=== PATIENT | male | born 1970 | race Caucasian/White ===

== ENCOUNTER → 2018-02-21 08:43 | Outpatient (CLI) | payer OTHER, SELFPAY ==
--- NOTE | 2018-02-21 08:46 | DI.RAD.S_ITS ---
PROCEDURE: XR CHEST 2V INDICATIONS: cough TECHNIQUE: 2 views of the chest were acquired. COMPARISON: [facility], , CHEST 1 VIEW, 04/15/2012, 6:05. FINDINGS: Surgical changes and devices: None. Lungs and pleura: No pleural effusions or pneumothorax. Lungs are clear. Mediastinum: Mediastinal contours are normal. Heart size is normal. Bones and chest wall: No suspicious bony abnormalities. Soft tissues appear unremarkable. IMPRESSION: No acute pulmonary process. Dictated by: Patricia De Leon M.D. on 02/21/2018 at 10:56 Approved by: Patricia De Leon M.D. on 02/21/2018 at 10:57
== END ==
PROVIDERS: PCP Family Medicine; Visit Provider Family Medicine
DX: R05 Cough (principal)
CPT/HCPCS: 71046

== ENCOUNTER → 2019-01-08 06:33 | Outpatient (CLI) | payer OTHER, SELFPAY ==
[2019-01-08 08:27] LABS: Add Manual Diff / Slide Review NO; Basophils Absolute Auto 0 /uL (0-100); Basophils Percent Auto 0.6 % (0-2); Eosinophils Absolute Auto 200 /uL (0-450); Hematocrit 42.2 % (41-53); Hemoglobin 13.9 g/dL (13.5-17.5); Lymphocytes Absolute Auto 2200 /uL (1100-4500); Lymphocytes Percent Auto 28.8 % (25-40); Mean Corpuscular HGB Conc 32.8 % (30-36); Mean Corpuscular Hemoglobin 28.5 PG (26-34); Mean Corpuscular Volume 86.7 fL (80-100); Monocytes Absolute Auto 700 /uL (0-900); Monocytes Percent Auto 8.7 % (3-14); Neutrophils Absolute Auto 4500 /uL (1500-7000); Neutrophils Percent Auto 59.9 % (50-75); Platelet Count 251 X10^3/uL (150-400); Red Blood Cell Count 4.87 X10^6/uL (4.5-5.9); Red Cell Distribution Width 13.2 % (11.6-14.8); White Blood Cell Count 7.5 X10^3/uL (4.5-11.0)
[2019-01-08 08:33] LABS: Hemoglobin A1C% w Est Avg Glu 6.8 % (4.0-6.0)
[2019-01-08 08:49] LABS: Alanine Aminotransferase 55 IU/L (21-72); Albumin 4.8 g/dL (3.5-5.0); Albumin Globulin Ratio 1.7 (1.0-2.8); Alkaline Phosphatase 72 U/L (38-126); Aspartate Aminotransferase 32 IU/L (17-59); Bilirubin Total 0.6 mg/dL (0.2-1.3); Blood Urea Nitrogen 14 mg/dL (9-20); Calcium 9.3 mg/dL (8.4-10.2); Carbon Dioxide 27 mmol/L (22-32); Chloride 103 mmol/L (98-107); Cholesterol 190 mg/dL (140-199); Estimated Glomerular Filt Rate > 60.0 mL/min (>60); Globulin 2.8 g/dL (1.7-4.1); Glucose 147 mg/dL (70-100); HDL Cholesterol 39 mg/dL (40-60); HEMOLYSIS < 15 (0-50); LDL Cholesterol Calculated 82 mg/dL (<100); Potassium 4.3 mmol/L (3.4-5.1); Sodium 140 mmol/L (137-145); Total Protein 7.6 g/dL (6.3-8.2); Triglycerides 345 mg/dL (35-150)
[2019-01-08 09:16] LABS: Thyroid Stimulating Hormone 1.53 uIU/mL (0.47-4.68)
== END ==
PROVIDERS: PCP Family Medicine; Visit Provider Family Medicine
DX: E11.9 Type 2 diabetes mellitus without complications (principal); E66.01 Morbid (severe) obesity due to excess calories; E78.5 Hyperlipidemia, unspecified
CPT/HCPCS: 36415; 80053; 80061; 83036; 84443; 85025

== ENCOUNTER 2019-02-04 11:58 | Day surgery (SDC) | payer OTHER, SELFPAY ==
--- NOTE | 2019-02-04 12:10 | PM.HP.1 ---
History of Present Illness Date Patient Seen: 02/04/19 Time Patient Seen: 12:10 Chief complaint: [id number] Narrative: 48yo M for first low risk screening colonoscopy. No family history, no alarm symptoms. Patient History Medical History Hyperlipidemia (Chronic 2008) Controlled type 2 diabetes mellitus (Chronic 01/01/13) Morbid obesity (Chronic 03/01/16) Chronic cough (Chronic) Elevation of muscle enzyme (Chronic 2007) Skin tag (Chronic) Elbow fracture, right (Resolved 1988) Positive PPD (Resolved 1990) Surgical History Anesthesia (Resolved) Status post arthroscopy (Resolved) Family History (Updated 03/05/18 @ 10:52 by Kaleigh Caban) Father Age: 76 Diabetes mellitus Heart disease Hyperlipidemia Mother Heart disease Hypertension High cholesterol Heart attack Grandfather Heart disease Hypertension Grandmother No problems noted. Social History marital status: Smoking Status: Never smoker alcohol intake: never substance use type: does not use Family & Social History Family History Father Age: 76 Diabetes mellitus Heart disease Hyperlipidemia Mother Heart disease Hypertension High cholesterol Heart attack Grandfather Heart disease Hypertension Grandmother No problems noted. Tobacco & Substance use: Smoking Status Never smoker alcohol intake never Meds Home Medications Medication Instructions Recorded Confirmed Type Test Strips - Freestyle str BID #100 08/16/17 01/14/19 Rx aspirin 81 mg tablet,delayed 81 mg PO DAILY #90 tab 12/25/17 02/04/19 Rx release metformin 1,000 mg tablet 1,000 mg PO BIDCC #180 tab 04/18/18 02/04/19 Rx blood sugar diagnostic strips #100 each 08/19/18 02/04/19 Rx simvastatin 40 mg tablet 40 mg PO QDAY #90 tab 09/09/18 02/04/19 Rx Allergies Allergy/AdvReac Type Severity Reaction Status Date / Time No Known Drug Allergies Allergy Verified 02/04/19 12:20 Review of Systems Constitutional Constitutional: Reports as per HPI Exam Narrative Exam Narrative: AAO, NAD, overweight male EOMI, MMM, no scleral icterus unlabored RA soft, nt/nd MAEW visible skin dry and intact Assessment & Plan (1) Screening for colorectal cancer: Current visit: Yes Status: Acute Assessment & Plan narrative: - low risk screening colonoscopy --> all R/B/A discussed and pt wishes to proceed
[2019-02-04 12:15] VITALS: BMI 33.0
[2019-02-04] MEDS: SODIUM CHLORIDE 0.9% 1,000 ML 200 ML IV (12:15)
[2019-02-04 12:20] VITALS: BP 117/76; PULSE 74; RESP 15; TEMP 36.6; O2SAT 96
--- NOTE | 2019-02-04 12:30 | PM.OP.ENDO ---
Operative Date/Time/Diagnoses Date of procedure: 02/04/19 Time of procedure: 13:14 Pre-op diagnosis: Need for screening colonoscopy Post-op diagnosis: same Procedure & Clinicians Study performed: Low risk screenng colonoscopy Same procedure as scheduled: Yes Indications: 48yo M for first low risk screening colonoscopy. All risks, benefits, and alternatives discussed and pt wishes to proceed. Surgeon: Anne Drake Procedure Notes SCOAP/Timeout: 1232 Procedure in detail: After obtaining informed consent, the patient was brought to the GI suite and placed in the left lateral decubitus position on the examination table. After placement of appropriate monitors, the patient was given incremental doses of Versed and Fentanyl until an appropriate level of sedation was achieved. A time out was held per SCOAP protocol. A digital rectal examination was performed and did not reveal any masses or obstructing lesions but one very small external hemorrhoid is noted. The colonoscope was gently passed into the patient's anus and the entire colon navigated to the level of the cecum with minimal difficulty. Prep was adequate although moderate volume fluid was present requiring regular suctioning. Once in the cecum, the scope was slowly withdrawn being sure to go before and beyond all mucosal folds and prominences as able to get a thorough examination. No masses or polyps are noted. No other abnormal findings. At the level of the rectal vault, the scope was retroflexed and the internal anal canal was examined. The scope was straightened and air aspirated from the colon. The instrument was removed from the patient's body and the procedure was concluded. The patient was allowed to awaken from sedation without difficulty and taken to the post-anesthesia care unit in good condition. Scope withdrawal time: 16 min Sedation minutes: 31 Specimen(s): none sent Complications: none Impression: normal colon Recommendations: Colonscopy in 10 years Follow up: as needed Disposition: PACU
[2019-02-04] MEDS: MIDAZOLAM 5 MG/5 ML VIAL IV (12:53)
[2019-02-04] MEDS: fentaNYL 250 MCG/5 ML INJ IV (12:53)
[2019-02-04 13:09] VITALS: BP 126/78; PULSE 69; RESP 17; TEMP 36.5; O2SAT 96
[2019-02-04 13:15] VITALS: BP 109/73; PULSE 67; RESP 17; O2SAT 97
[2019-02-04 13:33] VITALS: BP 113/68; PULSE 71; RESP 17; TEMP 36.5; O2SAT 98
== END 2019-02-04 13:36 | disposition home or self-care (01) ==
PROVIDERS: PCP Family Medicine; Visit Provider Surgery
PROC: 0DJD8ZZ Inspection of Lower Intestinal Tract, Via Natural or Artificial Opening Endoscopic (ICD-10-PCS; CPT 45378; principal; 2019-02-04 13:00)
DX: Z12.11 Encounter for screening for malignant neoplasm of colon (principal)
CPT/HCPCS: 45378; 99152; 99153; J2250; J3010

== ENCOUNTER → 2019-06-28 18:46 | Outpatient (CLI) | payer OTHER, SELFPAY ==
--- NOTE | 2019-06-28 18:48 | DI.RAD.S_ITS ---
PROCEDURE: XR ELBOW RT MIN 3V INDICATIONS: rt elbow TECHNIQUE: 3 views of the elbow were acquired. COMPARISON: None. FINDINGS: Bones: No acute fractures or dislocations. Faint densities project adjacent to the right radial head. No suspicious bony lesions. Tiny olecranon spur. Soft tissues: No elbow joint effusion. No suspicious soft tissue calcifications. IMPRESSION: Right elbow without acute osseous abnormalities or malalignment. Nonspecific faint densities projecting adjacent to the radial head which may represent soft tissue calcifications of the adjacent ligament. Dictated by: Dennis Villanueva M.D. on 06/28/2019 at 19:19 Approved by: Dennis Villanueva M.D. on 06/28/2019 at 19:27
== END ==
PROVIDERS: PCP Family Medicine; Visit Provider Family Medicine
DX: M25.521 Pain in right elbow (principal)
CPT/HCPCS: 73080

== ENCOUNTER → 2019-08-01 07:12 | Outpatient (CLI) | payer OTHER, SELFPAY ==
[2019-08-01 08:58] LABS: Hemoglobin A1C% w Est Avg Glu 7.1 % (4.0-6.0)
[2019-08-01 09:12] LABS: BUN Creatinine Ratio 27.1 (6-22); Blood Urea Nitrogen 19 mg/dL (9-20); Calcium 9.2 mg/dL (8.4-10.2); Carbon Dioxide 23 mmol/L (22-32); Chloride 105 mmol/L (98-107); Estimated Glomerular Filt Rate > 60.0 mL/min (>60); Glucose 155 mg/dL (70-100); HEMOLYSIS < 15 (0-50); Potassium 3.9 mmol/L (3.4-5.1); Sodium 141 mmol/L (137-145)
[2019-08-01 09:33] LABS: Creatinine Urine Random 158.8 mg/dL
[2019-08-01 09:39] LABS: Microalbumi Creatinin Ratio Ur 9.4 ug/mg CR (<30); Microalbumin Urine Random 1.5 mg/dL (0-1.6)
== END ==
PROVIDERS: PCP Family Medicine; Visit Provider Family Medicine
DX: E11.9 Type 2 diabetes mellitus without complications (principal)
CPT/HCPCS: 36415; 80048; 82043; 82570; 83036

== ENCOUNTER → 2020-05-25 06:53 | Outpatient (CLI) | payer OTHER, SELFPAY ==
[2020-05-25 09:09] LABS: Hemoglobin A1C% w Est Avg Glu 8.1 % (4.0-6.0)
[2020-05-25 09:24] LABS: Glucose 159 mg/dL (70-100)
== END ==
PROVIDERS: PCP Family Medicine; Referring Provider Family Medicine; Visit Provider Family Medicine
DX: E11.9 Type 2 diabetes mellitus without complications (principal)
CPT/HCPCS: 36415; 82947; 83036

== ENCOUNTER 2020-06-14 17:01 | Emergency (ER) | payer OTHER, SELFPAY ==
[2020-06-14 17:15] VITALS: BP 142/84; PULSE 71; RESP 14; TEMP 36.8; O2SAT 98; BMI 32.3
[2020-06-14] MEDS: ACETAMINOPHEN 325 MG TABLET 650 MG PO (18:10)
[2020-06-14] MEDS: KETOROLAC 60 MG/2 ML VIAL 30 MG IM (18:10)
[2020-06-14] MEDS: LIDOCAINE PATCH 1 EACH ADH..PATCH TOP (18:11)
[2020-06-14] MEDS: CYCLOBENZAPRINE 10 MG TABLET PO (18:11)
[2020-06-14 19:06] VITALS: BP 135/85; PULSE 66; RESP 14; O2SAT 98
--- NOTE | 2020-06-14 22:33 | ED.BACK ---
HPI - Back Pain/Injury <SULY Leon - Last Filed: 06/14/20 23:01> General Chief Complaint: Back Pain/Injury Stated Complaint: LOWER BACK PAIN Time Seen by Provider: 06/14/20 17:44 Source: patient Mode of arrival: Ambulatory Limitations: no limitations History of Present Illness HPI Narrative: This is a 50-year-old male, nonsmoker, with past medical condition significant for hyperlipidemia, diabetes presents to ED with significant other with chief complain of right lower back radiating down to posterior knee and some numbness to his toes. Patient has history of peripheral neuropathy but numbness on toes feels little different. Spouse reports patient moved both motor yesterday and pain started yesterday evening. Patient denies fever, chills, nausea or vomiting. Patient denies urinary symptoms such as urgency, frequency, dysuria. Patient denies urinary or stool incontinence. Patient denies history of IV drug use or back surgery. Patient reports pain actually improves when he stands or walking but worse with sitting and he is ambulatory in stable gait. He had taken [id number] Advil at noon. Related Data Previous Rx's Medication Instructions Recorded aspirin 81 mg tablet,delayed 81 mg PO DAILY #90 tab 12/25/17 release simvastatin 40 mg tablet 40 mg PO QDAY #90 tab 02/14/19 metformin 1,000 mg tablet See Rx Instructions .ROUTE 09/08/19 .COMPLEX #180 tablet one touch verio test strips #300 each 06/02/20 Lancets #100 each 06/07/20 cyclobenzaprine 10 mg PO BID PRN #10 tab 06/14/20 lidocaine 1 patch TOP DAILY PRN #30 each 06/14/20 Allergies Allergy/AdvReac Type Severity Reaction Status Date / Time No Known Drug Allergies Allergy Verified 05/31/20 14:39 Review of Systems <SULY Leon - Last Filed: 06/14/20 23:01> Review of Systems Narrative: General: Denies fever, chills, fatigue, malaise, sweats. Respiratory: Denies dyspnea, cough, wheezing, hemoptysis, sputum. Cardiovascular: Denies chest pain, palpitations, orthopnea, edema. Gastrointestinal: Denies nausea, vomiting, abdominal pain, diarrhea, constipation, melena. : Denies dysuria, frequency, incontinence, hematuria, urinary retention. Musculoskeletal: See HPI Skin: Denies rash, skin lesions, or other. Patient History <SULY Leon - Last Filed: 06/14/20 23:01> Medical History Chronic cough (Chronic) Controlled type 2 diabetes mellitus (Chronic 01/01/13) Elbow fracture, right (Resolved 1988) Elevation of muscle enzyme (Chronic 2007) Hyperlipidemia (Chronic 2008) Morbid obesity (Chronic 03/01/16) Positive PPD (Resolved 1990) Right lateral epicondylitis (Acute) Skin tag (Chronic) Surgical History Anesthesia (Resolved) Status post arthroscopy (Resolved) Family History Father Age: 77 Diabetes mellitus Heart disease Hyperlipidemia Mother Heart disease Hypertension High cholesterol Heart attack Grandfather Heart disease Hypertension Grandmother No problems noted. Social History marital status: household members: spouse Smoking Status: Never smoker alcohol intake: never substance use type: does not use Smoking Status: Never smoker alcohol intake frequency: 0-2 drinks per day Substance Use Type: does not use Exam <SULY Leon - Last Filed: 06/14/20 23:01> Narrative Exam Narrative: General appearance: well developed, well nourished, in no acute distress. Head: normocephalic, atraumatic, no scalp lesions, non-tender. ENT: Hearing grossly intact. Airway patent. Neck/Thyroid: neck supple, full range of motion, no visible masses or meningeal signs. No JVD, non-tender without lymphadenopathy. Skin: no suspicious rashes, lesions over visible areas. Warm and dry and appropriate color for ethnicity. Heart: no clubbing, no cyanosis, no edema. Lungs: Breathing even and unlabored. No stridor. No accessory muscles used. Able to speak in full sentences. Chest: normal shape and expansion. Abdomen: non-obese, non-distended. Neurologic: alert and oriented. Cognitive exam, [employer] and PNS grossly intact on informal exam. Psych: good eye contact, normal affect. Initial Vital Signs Initial Vital Signs: Vital Signs Temperature 98.2 F 06/14/20 17:15 Pulse Rate 71 06/14/20 17:15 Respiratory Rate 14 06/14/20 17:15 Blood Pressure 142/84 H 06/14/20 17:15 Pulse Oximetry 98 06/14/20 17:15 Back/Spine/Pelvis Back: normal to inspection, back tenderness, No CVA tenderness, No ecchymosis, No erythema, No mass and No warmth Thoracic/Lumbar Spine: straight leg raise negative bilaterally, No bend over test abnormal, paraspinal tenderness (lumbar region), No thoracic spinal tenderness, No lumbar spinal tenderness, No straight leg raise positive and No tilt present <Yunior Jesus DO - Last Filed: 06/15/20 07:44> Initial Vital Signs Initial Vital Signs: Vital Signs Temperature 98.2 F 06/14/20 17:15 Pulse Rate 71 06/14/20 17:15 Respiratory Rate 14 06/14/20 17:15 Blood Pressure 142/84 H 06/14/20 17:15 Pulse Oximetry 98 06/14/20 17:15 Scores <SULY Leon - Last Filed: 06/14/20 23:01> GCS Chacha coma scale eye opening: Spontaneous Chacha coma scale verbal response: Orientated Chacha coma scale motor response: Obey commands Chacha coma scale total score: 15 Course <SULY Leon - Last Filed: 06/14/20 23:01> Orders Ordered: Discontinued Medications Acetaminophen (Tylenol) 650 mg PO NOW ONE Stop: 06/14/20 18:00 Last Admin: 06/14/20 18:10 Dose: 650 mg Documented by: PREM Cyclobenzaprine HCl (Flexeril) 10 mg PO NOW ONE Stop: 06/14/20 18:00 Last Admin: 06/14/20 18:11 Dose: 10 mg Documented by: PREM Ketorolac Tromethamine (Toradol) 30 mg IM NOW ONE Stop: 06/14/20 18:00 Last Admin: 06/14/20 18:10 Dose: 30 mg Documented by: PREM Lidocaine (Lidoderm) 1 each TOP NOW ONE Stop: 06/14/20 18:00 Last Admin: 06/14/20 18:11 Dose: 1 each Documented by: PREM Vital Signs Vital signs: Vital Signs - 8 hr 06/14/20 17:15 06/14/20 19:06 Temperature 98.2 F Pulse Rate 71 66 Respiratory Rate 14 14 Blood Pressure 142/84 H 135/85 Pulse Oximetry 98 98 <Yunior Jesus DO - Last Filed: 06/15/20 07:44> Orders Ordered: Discontinued Medications Acetaminophen (Tylenol) 650 mg PO NOW ONE Stop: 06/14/20 18:00 Last Admin: 06/14/20 18:10 Dose: 650 mg Documented by: PREM Cyclobenzaprine HCl (Flexeril) 10 mg PO NOW ONE Stop: 06/14/20 18:00 Last Admin: 06/14/20 18:11 Dose: 10 mg Documented by: PREM Ketorolac Tromethamine (Toradol) 30 mg IM NOW ONE Stop: 06/14/20 18:00 Last Admin: 06/14/20 18:10 Dose: 30 mg Documented by: PREM Lidocaine (Lidoderm) 1 each TOP NOW ONE Stop: 06/14/20 18:00 Last Admin: 06/14/20 18:11 Dose: 1 each Documented by: PREM Vital Signs Vital signs: Vital Signs - 8 hr 06/14/20 17:15 06/14/20 19:06 Temperature 98.2 F Pulse Rate 71 66 Respiratory Rate 14 14 Blood Pressure 142/84 H 135/85 Pulse Oximetry 98 98 MDM - Back Pain/Injury <SULY Leon - Last Filed: 06/14/20 23:01> Differential Diagnosis Differential diagnosis: Likely lumbar radiculopathy, sciatica and strain of lumbar region Medical Records Attestation: I reviewed the patient's medical records. Lab Data Attestation: I reviewed the patient's lab results. MDM Narrative Medical decision making narrative: [age] year male who presents to ED with right-sided low back pain radiating down to posterior knee after he moved boat motor. Physical exam is unremarkable. Patient is afebrile and nontoxic appearing. Vital signs within normal limits. Pain worsens with prolonged sitting or supine position. Patient ambulatory in stable gait. Physical exam is not consistent with infection or shingles, pyelonephritis or renal stone. Patient was medicated for lumbar strain with Tylenol, IM Toradol, Lidocaine patch, and Flexeril with some improvement and he was discharged to home with this medication to continue. Advised to follow up with primary care physician and return precautions discussed with patient and spouse which they both verbalized understanding in agreement with the treatment plan. Discharge Plan Departure Patient Disposition: Home Clinical Impression: Low back pain Qualifiers: Chronicity: acute Back pain laterality: right Sciatica presence: with sciatica Sciatica laterality: sciatica of right side Qualified Code(s): M54.41 - Lumbago with sciatica, right side Discharge Date/Time: 06/14/20 19:07 Instructions: DI for Back Pain With Sciatica Activity Restrictions/Additional Instructions: You have been diagnosed with [right-sided low back pain radiating to posterior leg likely sciatica.]. What to do: *Take your medications as directed. You were medicated with Tylenol, IM Toradol, Flexeril (muscle relaxant), Lidocaine patch in ED which helped with discomfort. Flexeril may cause drowsiness so please do not drive, drink alcohol or operate heavy equipments. Lidocaine patch stays on for 12 hours and off for 12 hours. You can take [id number] ibuprofen/Aleve as needed for pain but please take it with food to decrease GI irritations. These to medication have been transmitted to [facility]. *Follow up with your primary care provider in 2-3 days, call for an appointment. Let them know you were seen in the ED and that we asked you to be seen in follow up. *Return to ED if you have any new, worsening, or concerning symptoms, such as [numbness to her groin, incontinence for stool or bladder, fever, rash on her back, chest pain, breathing difficulty, unable to tolerate fluids or any acute concerns]. Prescriptions: New cyclobenzaprine 10 mg tablet 10 mg PO BID PRN (Reason: muscle spasm) Qty: 10 RF: 0 lidocaine 5 % adhesive patch,medicated 1 patch TOP DAILY PRN (Reason: back pain) Qty: 30 RF: 0 No Action simvastatin 40 mg tablet 40 mg PO QDAY Qty: 90 RF: 3 metformin 1,000 mg tablet See Rx Instructions .ROUTE .COMPLEX Qty: 180 RF: 3 (DME) one touch verio test strips Qty: 300 RF: 3 (DME) Lancets Qty: 100 RF: 11 aspirin [Adult Aspirin Regimen] 81 mg tablet,delayed release (DR/EC) 81 mg PO DAILY Qty: 90 RF: 3 Referrals: Eliu Panda MD [Primary Care Provider] - <Yunior Jesus DO - Last Filed: 06/15/20 07:44> Cosign ED Attending Cosignature Attestation: I was immediately available in the department for consultation. This documentation has been reviewed and I agree with assessment and plan. Supervised by Yunior Jesus DO
== END 2020-06-14 19:07 | disposition home or self-care (01) ==
PROVIDERS: Emergency Provider Nurse Practitioner Family; PCP Family Medicine
DX: M54.41 Lumbago with sciatica, right side (principal)
CPT/HCPCS: 96372; 99283; J1885

== ENCOUNTER → 2020-06-30 17:03 | Outpatient (CLI) | payer OTHER, SELFPAY ==
--- NOTE | 2020-06-30 17:06 | DI.MRI.S_ITS ---
PROCEDURE: MR LUMBAR SPINE WO CON INDICATIONS: significant motor muscle weakness TECHNIQUE: Noncontrast sagittal T1 spin echo and T2 fast echo, sagittal STIR, axial T1 and T2 fast spin echo through the lumbar spine. In cases with scoliosis, additional coronal T2 fast spin echo may be performed. COMPARISON: None. FINDINGS: Image quality: Excellent. Alignment and Curvature: Bilateral L5 pars defects with anterolisthesis of L5 on S1 measuring 8 mm. The other vertebral bodies are normally aligned. Bone Marrow: Marrow is of normal overall signal. No acute vertebral body compression fractures. Spinal Cord: Conus medullaris terminates at the L1-L2 level. Visualized cord demonstrates normal signal and size. Paraspinous Soft Tissues: No paravertebral masses. T12-L1: No canal stenosis or foraminal stenosis. L1-L2: Bilateral facet hypertrophy. No canal stenosis or foraminal stenosis. L2-L3: Mild disc bulge. Facet and ligament hypertrophy. Borderline canal stenosis. No significant foraminal stenosis. L3-L4: Posterior annulus tear associated with moderate broad-based posterior disc protrusion, eccentric to the right, impinging on right-sided nerve roots in the thecal sac. Bilateral facet hypertrophy. Associated inferior disc extrusion in the right lateral recess measuring approximately 1.1 x 0.9 x 0.5 cm, obliterating the right L4 nerve root in the right lateral recess. Mild bilateral foraminal stenosis. L4-L5: Annulus tear associated with moderate diffuse disc bulge. Facet and ligament hypertrophy. Mild canal stenosis. No significant foraminal stenosis. L5-S1: Bilateral L5 pars defects with grade 1 anterolisthesis of L5 on S1. Posterior disc bulge. No canal stenosis. Severe bilateral foraminal stenosis with impingement on the bilateral exiting L5 nerve roots. IMPRESSION: 1. At L3-L4, there is a moderate broad-based posterior disc protrusion, eccentric to the right, impinging on right-sided nerve roots in the thecal sac. There is also a inferior disc extrusion in the right lateral recess which obliterates the right L4 nerve root in the right lateral recess behind L4. 2. Mild canal stenosis at L4-L5. 3. Bilateral L5 pars defects at L5-S1 with grade 1 anterolisthesis of L5 on S1 results in severe bilateral foraminal stenosis with impingement on the bilateral exiting L5 nerve roots. Dictated by: Jim Mayfield M.D. on 07/01/2020 at 10:01 Approved by: Jim Mayfield M.D. on 07/01/2020 at 10:12
== END ==
PROVIDERS: PCP Family Medicine; Referring Provider Family Medicine; Visit Provider Family Medicine
DX: M51.16 Intervertebral disc disorders with radiculopathy, lumbar region (principal); M48.061 Spinal stenosis, lumbar region without neurogenic claudication; M48.07 Spinal stenosis, lumbosacral region; M43.16 Spondylolisthesis, lumbar region; R29.898 Other symptoms and signs involving the musculoskeletal system
CPT/HCPCS: 72148

== ENCOUNTER → 2020-12-03 16:03 | Outpatient (CLI) | payer OTHER, SELFPAY ==
[2020-12-03] MEDS: COVID-19 VACC #1, MRNA(MOD) 100 MCG/0.5 ML VIAL IM (16:11)
== END ==
PROVIDERS: PCP Family Medicine; Visit Provider Internal Medicine
DX: Z23 Encounter for immunization (principal)
CPT/HCPCS: 0011A; 91301

== ENCOUNTER → 2020-12-22 05:59 | Outpatient (CLI) | payer OTHER, SELFPAY ==
[2020-12-22 07:22] LABS: Add Manual Diff / Slide Review NO; Basophils Absolute Auto 0 /uL (0-100); Basophils Percent Auto 0.6 % (0-2); Eosinophils Absolute Auto 200 /uL (0-450); Eosinophils Percent Auto 2.6 % (2-4); Hematocrit 39.8 % (41-53); Hemoglobin 13.4 g/dL (13.5-17.5); Lymphocytes Absolute Auto 1900 /uL (1100-4500); Lymphocytes Percent Auto 31.3 % (25-40); Mean Corpuscular HGB Conc 33.7 % (30-36); Mean Corpuscular Hemoglobin 29.4 PG (26-34); Monocytes Absolute Auto 600 /uL (0-900); Monocytes Percent Auto 9.6 % (3-14); Neutrophils Absolute Auto 3400 /uL (1500-7000); Neutrophils Percent Auto 55.9 % (50-75); Platelet Count 192 X10^3/uL (150-400); Red Blood Cell Count 4.57 X10^6/uL (4.5-5.9); Red Cell Distribution Width 12.8 % (11.6-14.8); White Blood Cell Count 6.1 X10^3/uL (4.5-11.0)
[2020-12-22 07:28] LABS: Hemoglobin A1C% w Est Avg Glu 8.4 % (4.0-6.0)
[2020-12-22 07:36] LABS: BUN Creatinine Ratio 21.7 (6-22); Blood Urea Nitrogen 15 mg/dL (9-20); Calcium 9.4 mg/dL (8.4-10.2); Carbon Dioxide 25 mmol/L (22-32); Chloride 102 mmol/L (98-107); Estimated Glomerular Filt Rate > 60.0 mL/min (>60); Glucose 196 mg/dL (70-100); HEMOLYSIS < 15 (0-50); Potassium 4.6 mmol/L (3.4-5.1); Sodium 137 mmol/L (137-145)
== END ==
PROVIDERS: PCP Family Medicine; Referring Provider Family Medicine; Visit Provider Orthopaedic Surgery Orthopaedic Surgery of the Spine
DX: Z01.818 Encounter for other preprocedural examination (principal); Z01.812 Encounter for preprocedural laboratory examination; R73.9 Hyperglycemia, unspecified
CPT/HCPCS: 36415; 80048; 83036; 85025; 93005

== ENCOUNTER → 2020-12-29 16:08 | Outpatient (CLI) | payer OTHER, SELFPAY ==
[2020-12-29] MEDS: COVID-19 VACC #2, MRNA(MOD) 100 MCG/0.5 ML VIAL IM (16:12)
== END ==
PROVIDERS: PCP Family Medicine; Visit Provider Internal Medicine
DX: Z23 Encounter for immunization (principal)
CPT/HCPCS: 0012A; 91301

== ENCOUNTER → 2021-01-11 14:00 | Outpatient (CLI) | payer OTHER, SELFPAY ==
[2021-01-11 14:31] LABS: COVID19 -Nasal RAPID Negative (Negative)
== END ==
PROVIDERS: PCP Family Medicine; Visit Provider Physician Assistant
DX: Z20.822 Contact with and (suspected) exposure to COVID-19 (principal)
CPT/HCPCS: 87635

== ENCOUNTER 2021-01-12 06:18 | Inpatient (IN) | payer OTHER, SELFPAY ==
[2021-01-05 08:44] VITALS: BMI 32.3
[2021-01-12] VITALS (17 sets, daily range): BP systolic 117–136; BP diastolic 67–83; PULSE 73–96; RESP 10–22; TEMP 35.6–37.7; O2SAT 91–98; BMI 32.3
[2021-01-12] MEDS: LACTATED RINGERS 1,000 ML 100 ML IV ×2 (07:17→10:36)
--- NOTE | 2021-01-12 07:41 | PM.PREOP ---
Pre-operative Note COVID-19 COVID-19 status: Negative Result date/Date tested (Pos, Neg/Pending): 01/10/21 Interval Note History & Physical reviewed/Exam performed by Physician: Yes Changes to H&P: No
[2021-01-12] MEDS: CEFAZOLIN 1 GM VIAL 2 GM IV ×2 (07:56→16:13)
--- NOTE | 2021-01-12 08:26 | SUR.OPER ---
Prone on spine table, head in foam head support, padded chest and pelvic supports, gel pad at knees, lower legs supported by pillows; nipples, genitalia and toes free of pressure, arms secured on foam padded arm boards at <90 degrees abduction. Tape over blanket at thigh secured to table.
[2021-01-12] MEDS: BUPIVACAINE 0.5% W/ EPI (PF) 30 ML VIAL INJ (08:41)
[2021-01-12] MEDS: BUPIVACAINE LIPOSOME 266 MG/20 ML VIAL INJ (08:42)
[2021-01-12] MEDS: ACETAMINOPHEN IV 1,000 MG/100 ML VIAL 400 MG IV (12:45)
--- NOTE | 2021-01-12 13:38 | PM.OP.1 ---
Operative Date/Time/Diagnoses Date of procedure: 01/12/21 Time of procedure: 08:05 Pre-op diagnosis: 1. L3-4, L4-5, L5-S1 spondylolisthesis 2. L3-4, L4-5, L5-S1 spinal stenosis 3. L3-4, L4-5, L5-S1 spondylosis with radiculopathy Post-op diagnosis: same Procedure & Clinicians Procedure: 1. L3-4, L4-5, L5-S1 Postero-lateral and posterior interbody fusion 2. L3-4, L4-5, L5-S1 interbody cage placement. 3. L3-4, L4-5, L5-S1 decompressive laminectomy with bilateral facetecomies 4. L3-4, L4-5, L5-S1 Posterior segmental instrumentation 5. [place] of bone marrow from iliac crest 6. Utilization of microsurgical technique and operating microscope Same procedure as scheduled: Yes Indications: Patient has been having chronic back pain and worsening lumbar radiculopathy. Patient failed multiple conservative management with worsening pain weakness and numbness in her lower extremity. Patient has been having difficulty performing activity of daily living. After discussing risks benefits of treatment options, patient elected proceed with surgery. Surgeon: Charlotte De La Paz Employment Evaluator/Case Manager: Wes Capellan Click Yes if Unassisted: No Anesthesia Type: General Operative Notes Closure Type: primary Specimen(s): none sent Prosthetic devices, grafts, tissues, transplants, or devices: Globus revolve screws, Rise cages Applied: catheter Estimated Blood Loss (mL): 200 Blood products transfused: none Procedure in detail: Patient was seen in the preoperative area. Risks and benefits of the surgery was discussed with the patient. Informed consent was obtained from the patient and placed in the chart. Surgical site was marked. Patient was taken to the operative room. General anesthesia was administered. Prophylactic antibiotic was given to the patient less than 30 min before the incision was made. Patient was placed into a prone position on the Moo table. Patient's back was then prepped and draped in the sterile fashion. Time-out was performed at this time. Using AP and lateral C-arm imaging the interval between L3-S1 was identified and marked on patient's back. A 3 inch incision 2 in from midline was made on the right side first. The fascia was incised in line with skin incision. Globus MARS retractors was placed inside the incision and docked onto the L3, L4 and L5 lamina. Using microsurgical technique and operating microscope, a L3, L4 and L5 laminectomy and L3-4, L4-5 L5-S1 facetectomy was performed using a Kerrison rongeur. The disc space at L3-4, L4-5, L5-S1 was identified. And a total diskectomy was performed at L3-4, L4-5, L5-S1 level. The endplates were decorticated using a rasp and shaver. Patient was found have severe central and neural foramen stenosis which was fully decompressed after the laminectomy and facetectomy was completed at all 3 levels. The total diskectomy and decortication was performed at L3-4, L4-5, L5-S1 level in order to to accomplish a L3-4, L4-5, L5-S1 fusion. The local bone from the laminectomy and facetectomy was saved for local bone grafting. After the total diskectomy and decortication was completed, Trifecta bone graft material was combined with local bone that was harvested earlier. At this time, a separate skin is incision was made over the iliac crest. A Jamshidi needle was inserted into the iliac crest through a separate skin incision. 5 cc of bone marrow aspiration was obtained through the separate skin incision using a Jamshidi needle from the iliac crest. The bone marrow aspiration was combined with local bone and the Trifecta bone grafting material. The bone grafting material was placed into the L3-4, L4-5, L5-S1 interbody space along with three cages, one expandable cage at each level. The cages were expanded to their maximum height using the torque limiting screwdriver. At this time a mirror image incision was made on the left side. The fascia was incised in line with the skin incision. Globus MARS retractor was inserted and docked onto the L3-4, L4-5, L5-S1 posterolateral gutter. Using the power drill, posterior-lateral decortication was performed at L3-4, L4-5, L5-S1 level until bleeding cortical bone was identified. The remaining bone grafting material was placed into the L3-4, L4-5 L5-S1 posterior lateral gutter he order to accomplish posterolateral fusion at the L3-4, L4-5 L5-S1 levels. Using the double C-arm technique, pedicle screws were placed into the L3, L4, L5, S1 pedicles bilaterally. This was done by placing the Jamshidi needle into the pedicles, then placing the guidewires over the Jamshidi needle, and finally placing the cannulated screws over the guidewires bilaterally. After the pedicle screws were placed, 2 titanium rods was locked into the heads of the pedicle screws using locking caps and torque limiting screwdriver. Total 8 pedicles screws were placed. Thready reducers were used to reduce the patient's spondylolisthesis prior to hardware placement. All hardware placed had excellent purchase. After all the hardware was placed, and confirmed with AP and lateral C-arm imaging, the wound was then irrigated with sterile normal saline and packed with Ray-Driss gauze for 3 min to accomplish hemostasis. After the gauze was removed the deep fascia was closed with #1 Vicryl suture. The subcutaneous layer was closed with 2-0 Vicryl. The skin was closed with skin art. Patient tolerated the procedure well. There were no complications. Complications: none Post-operative Condition: stable Disposition: PACU Plan for aftercare: Admit to inpatient hospital
[2021-01-12] MEDS: HYDROMORPHONE 2 MG INJ IV (13:58)
[2021-01-12] MEDS: fentaNYL 100 MCG/2 ML INJ IV (14:10)
--- NOTE | 2021-01-12 14:26 | SUR.PHASEI ---
Dr Castaneda notifed in person of [facility]. No new orders.
[2021-01-12] MEDS: OXYCODONE IR 5 MG TABLET PO (14:45)
--- NOTE | 2021-01-12 14:58 | SUR.PHASEI ---
Pt transfered to [facility] on bed. Bedside handoff to [facility] with dressing check. Bed in low position, locked. Call light with patient. at bedside.
--- NOTE | 2021-01-12 15:08 | SUR.PHASEI ---
[address] Gonsalves informed of acetaminophen received in OR and Percocet ordered for pain. See new order for oxycodone.
[2021-01-12] MEDS: SODIUM CHLORIDE 0.9% 1,000 ML 100 ML IV (16:12)
[2021-01-12] MEDS: METFORMIN HCL 500 MG TABLET 1000 MG PO (16:13)
[2021-01-12] MEDS: OXYCODONE IR 5 MG TABLET 10 MG PO ×2 (16:34→20:28)
[2021-01-12] MEDS: ATORVASTATIN 20 MG TABLET PO (20:28)
[2021-01-12] MEDS: SENNOSIDES 8.6 MG TABLET 17.2 MG PO (20:28)
[2021-01-12] MEDS: DOCUSATE 100 MG CAPSULE PO (20:28)
[2021-01-12] MEDS: HYDROMORPHONE 0.5 MG INJ IV (22:40)
--- NOTE | 2021-01-12 23:20 | PC.NURSE ---
VSS. Temp did rise to 99.9 F at 2300. Pain 7/10 in back, given PRN oxycodone 10 mg and IV hydromorphone 0.5 mg which provide some relief. NS @ 100 into left hand. Dressing clean dry and intact. at bedside helping with repositioning and providing comfort. Denies nausea but did not want to eat dinner. Educated of proper moving (log roll). SCDs on BLE. Call light within reach, bed low.
[2021-01-13] VITALS (7 sets, daily range): BP systolic 111–140; BP diastolic 62–81; PULSE 68–85; RESP 16–18; TEMP 36.6–37.6; O2SAT 94–99
[2021-01-13] MEDS: CEFAZOLIN 1 GM VIAL 2 GM IV
[2021-01-13] MEDS: OXYCODONE IR 5 MG TABLET 10 MG PO ×3 (00:01→22:11)
[2021-01-13] MEDS: HYDROMORPHONE 0.5 MG INJ IV ×3 (01:09→05:43)
[2021-01-13] MEDS: SODIUM CHLORIDE 0.9% 1,000 ML 100 ML IV (02:07)
[2021-01-13] MEDS: hydrOXYzine pamoate 25 MG CAPSULE PO (05:45)
[2021-01-13 06:14] LABS: Hematocrit 34.4 % (41-53); Hemoglobin 11.6 g/dL (13.5-17.5)
--- NOTE | 2021-01-13 07:06 | PC.NURSE ---
Dr. Chambers notified via answering service to report pt. having pain 6-7 after the Dilaudid was admin. Dr. Chambers called back no new order. States the PA will be there in 20 mins. Will notify Pt. & spouse.
--- NOTE | 2021-01-13 07:58 | P.HP_ITS ---
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 Moore with L3 -L4-L4-L5 L5-S1 TLIF. I have been asked to see the patient to help consult for his medical care. Patient states it was a rough night. Having a significant amount of pain in his back 03/29. Says is worse with movement. Says he does notice that the numbness in his foot is now gone. Has a little bit of radicular pain only with movement. His pain is surrounded and centered in the back over the surgical site. Patient was not comfortable with the oral oxycodone oral muscle relaxers and some IV Dilaudid he is hoping to have something more significant for pain control. Discussed with the physician timber management assistant who is rounding today on Dr. bernard patient's. Otherwise his medical problems have been stable. Patient has no complaints of chest pain dizziness lightheadedness shortness of breath. Says he can not move his feet well. Having hard time getting uncomfortable and mainly complaints of pain. Patient History Medical History Chronic cough Controlled type 2 diabetes mellitus (01/01/13) Elbow fracture, right (1988) Elevation of muscle enzyme (2007) Hyperlipidemia (2008) Intervertebral disc disorder with radiculopathy of lumbar region Left ankle sprain Low back pain Lumbar strain Morbid obesity (03/01/16) Muscle spasm Numbness Positive PPD (1990) Right lateral epicondylitis Skin tag Spasm of back muscles Spinal stenosis Tinnitus Surgical History Anesthesia History of colonoscopy Hx of LASIK (2003) Hx of removal of cyst Status post arthroscopy Family & Social History Family History Father Age: 78 Diabetes mellitus Heart disease Hyperlipidemia Mother Heart disease Hypertension High cholesterol Heart attack Grandfather Heart disease Hypertension Grandmother No problems noted. Social History: household members spouse Prior Living Arrangements House Safety & Behavioral: Feels Safe in Current Yes Environment Been Physically Hurt or No Threatened By a Person Suicidal Ideation Description None Suicide Plan Description No Plan Tobacco & Substance use: Smoking Status Never smoker alcohol intake former alcohol intake frequency 0-2 drinks per day Substance Use Type does not use Meds Home Medications and Allergies Home Medications Medication Instructions Recorded Confirmed Type aspirin 81 mg tablet,delayed 81 mg PO DAILY #90 tab 12/25/17 01/12/21 Rx release one touch verio test strips #300 each 06/02/20 01/13/21 Rx Lancets #100 each 06/07/20 01/13/21 Rx simvastatin 40 mg tablet 40 mg PO QDAY #90 tab 07/14/20 01/12/21 Rx metformin 1,000 mg tablet See Rx Instructions .ROUTE 12/13/20 01/12/21 Rx .COMPLEX #180 tablet Allergies Allergy/AdvReac Type Severity Reaction Status Date / Time No Known Drug Allergies Allergy Verified 01/12/21 06:42 Exam Vital Signs (past 8 hours): - 01/13/21 00:00 01/13/21 05:57 Temperature 99.6 F 98.8 F Pulse Rate 76 79 Respiratory Rate 16 18 Blood Pressure 111/62 134/81 Pulse Oximetry 98 99 Oxygen Delivery Method Nasal Cannula Oxygen Flow Rate 0 Narrative Exam Narrative: Gen.: Alert good historian uncomfortable in bed HEENT: Pupils equal round and reactive to light oral mucosa is moist neck is supple Cardio: S1-S2 regular rate and rhythm Respiratory: Lungs are clear no wheezes or crackles Abdomen: Soft nontender good bowel sounds Extremities: Warm dry perfused Objective Labs Result Diagrams: 01/13/21 05:15 Labs: Laboratory Results - last 24 hr 01/13/21 05:15 Hgb 11.6 L Hct 34.4 L Assessment & Plan Assessment & Plan narrative: Spondylolisthesis with spinal stenosis and radiculopathy status post L3-L4-L5-S1 surgery by Dr. Moore. Discussed with surgical PA this morning patient has been uncomfortable all night. Made some quick adjustments to his pain medication increasing Dilaudid from 0.5 mg to 1.0 mg every q.2 hours as needed. Starting on dexamethasone 4 mg IV for the next 48 hours. Continue with the current muscle relaxers and oral pain pills as needed. Diabetes type 2 non-insulin dependent. Patient is on metformin. Due to the st eroids will go ahead and write for an insulin sliding scale coverage as I can anticipate his blood sugars going high although he is not super hungry now will monitor closely his blood sugars. Hyperlipidemia. Patient is on simvastatin will continue on his current anti cholesterol medication. Elevation of blood pressure. Patient does not have a history of hypertension. Will monitor closely his blood pressure is in the hospital and start antihypertensive medication if needed.
[2021-01-13] MEDS: HYDROMORPHONE 1 MG INJ IV ×5 (08:05→20:54)
[2021-01-13] MEDS: METFORMIN HCL 500 MG TABLET 1000 MG PO ×2 (08:09→17:21)
[2021-01-13] MEDS: ACETAMINOPHEN 325 MG TABLET 650 MG PO ×2 (08:19→20:53)
[2021-01-13] MEDS: DOCUSATE 100 MG CAPSULE PO ×2 (08:21→20:54)
[2021-01-13] MEDS: ASPIRIN EC 81 MG TABLET PO (08:21)
--- NOTE | 2021-01-13 10:33 | CM.DANOTE ---
DCP: Case received, EMR reviewed and met with patient. , Nicolasa, was also at bedside. Was able to obtain information regarding patient's baseline activity status prior to his surgery. DCP assessment completed with information currently available. Patient is a 50 year old male who admitted yesterday morning to the care of the orthopedic team. PCP: Dr. Panda. Payer: confirmed: [facility]. Patient came to the hospital via private vehicle for a surgical procedure. He had a L3-4, L4-5, and L5-S1 posteo-lateral interbody fusion. Patient has had history of spinal stenosis, as well as intervertebral disc disorders. Met with patient and in room. Patient was awake, laying flat in bed, , at bedside. Confirmed that he and his reside here in [place]. 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 He is independent at his baseline, has not used any DME supplies. 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 P: DCP to continue to follow. He has not yet been up with P.T. as of yet. Plan is for home with assist of , when he is more medically stable and has worked with P.T. Camilla Kaufman RN/Glove Cleaner
--- NOTE | 2021-01-13 11:30 | PT.IIE ---
Current Diagnoses Spondylolisthesis, lumbosacral region (01/12/21) Spinal stenosis, lumbar region without neurogenic claudication (01/12/21) Intervertebral disc disorders with radiculopathy, lumbar region (01/12/21) Surgery Performed Operation Date: 01/12/21 07:45 Actual Procedures p L3-4, L4-5, L5-S1 TLIF with posterior instrumentation - Charlotte De La Paz MD Surgical History (Last Reviewed 01/13/21 @ 08:01 by Eliu Panda MD) Anesthesia History of colonoscopy Hx of LASIK (2003) Hx of removal of cyst Status post arthroscopy Medical History (Last Reviewed 01/13/21 @ 08:01 by Eliu Panda MD) Chronic cough Controlled type 2 diabetes mellitus (01/01/13) Elbow fracture, right (1988) Elevation of muscle enzyme (2007) Hyperlipidemia (2008) Intervertebral disc disorder with radiculopathy of lumbar region Left ankle sprain Low back pain Lumbar strain Morbid obesity (03/01/16) Muscle spasm Numbness Positive PPD (1990) Right lateral epicondylitis Skin tag Spasm of back muscles Spinal stenosis Tinnitus Physical Therapy Inpatient Evaluation/Re-Eval M1 PT/OT-IP Prior Functional Status Start: 01/13/21 08:18 Freq: NEEDED Status: Active Protocol: Document 01/13/21 11:30 AW (Rec: 01/13/21 11:56 AW [id number]) Medical Review Prior Functional Status Medical History Reviewed Yes Communication WNL. Pt is an effective verbal communicator. Mobility and Gait Independent without AD Activities of Daily Living and IADL's Independent with all ADL's and IADL's. Prior Functional Level (Other details) Pt has had persistent low back pain and RLE pain/numbness. Social History Household Members spouse Living Arrangements House Number of Floors (Floors) One Floor Number of Stairs To Enter/Railing? 2 DOMINIQUE at front of house with no railing. 1 DOMINIQUE through garage with a dryer on the right and cabinet on the left. 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 He lives in [place] with his , Nicolasa, who will be available and able to support him at home when he discharges. M2 PT-IP Current Condition Start: 01/13/21 08:18 Freq: NEEDED Status: Active Protocol: Document 01/13/21 11:30 AW (Rec: 01/13/21 11:56 AW [id number]) Physical Therapy Current Condition Current Condition Evaluation Date 01/13/21 Treatment Diagnosis L3-4 L4-5 L5-S1 TLIF; difficulty in walking Onset Date 01/12/21 Precautions Lumbar Precautions Log Roll,No Twisting,Limit Bending,Lifting Restriction of 10 lbs,Gait Belt above Incisional Area M3 PT-IP Subjective Start: 01/13/21 08:18 Freq: NEEDED Status: Active Protocol: Document 01/13/21 11:30 AW (Rec: 01/13/21 11:56 AW [id number]) Subjective Physical Therapy Visit Type Type Initial Evaluation Visit Start Time 09:18 Visit Stop Time 11:30 Total Visit Minutes 22 Notes Pt's was present throughout evaluation. Number of TOP INVENTORY CONTROL EXECUTIVE Visits 0 Physical Therapy Visit Comments Patient Comments Pt is willing to participate with PT Patient Goals Return home with spouse support. Therapy Pain Assessment Pain When Pain Assessed During Mobility Pain Present Pain Present Pain Reported Location back Intensity 6 Scale Used 5/10 at rest Pain Behaviors Guarding,Wincing Pain Management Techniques Re-positioning,Timing of Activity with Medications M4 PT-IP Mobility and Gait Start: 01/13/21 08:18 Freq: NEEDED Status: Active Protocol: Document 01/13/21 11:30 AW (Rec: 01/13/21 11:56 AW [id number]) PT-Bed Mobility Assessment Rolling Type of Rolling Log Rolling,Roll to Left Level of Assist Minimal Assistance,1 Person Assistance Supine to Sit Supine to Sit Moderate Assistance,1 Person Assistance,Bedrails Scooting Scooting to Edge of Bed Standby Assistance PT-Transfer Assessment Sit to and From Stand Sit to and from Stand Moderate Assistance,1 Person Assistance,Use of Upper Extremities Equipment Transfer Assistive Device Gait Belt,Front Wheeled Walker Orthotic/Prosthetic Devices or Brace: No Transfers Transfer Destination Chair Transfer Technique ambulated with FWW Transfer Ability Level of Assist Moderate Assistance,1 Person Assistance,Use of Upper Extremities Comments Mobility Comments Pt was reclined in bed as PT arrived. BP 130/68. PT educated pt on back precautions and log roll. Pt needed min assist to log roll to his left side and then mod assist for SL to sit. He sat EOB with complaint of increased pain. He needed mod assist to stand from the bed and verbal/tactile cues for bilateral knee extension. Pt walked 3 feet with FWW CGA and transferred to the chair mod A x 1 and verbal cues for sequencing. Pt agreed to stand again, requiring mod assist. He used the FWW to ambulate to the sink and back to the chair with FWW CGA and mod assist for return to sitting due to poorly controlled descent. Pt was positioned with call light and tray table in reach. His remained in the room. Gait Assessment Gait Gait Assistance Required: Contact Guard Assist Distance (Feet) 12 Able to Maintain Weight Bearing Status Yes During Gait Assistive Devices Assistive Device Gait Belt,Front Wheeled Walker Orthotic/Prosthetic Devices or Brace: No Gait Deviations General Gait Pattern Antalgic,Decreased Stride Length,Decreased Feet Clearance Factors Limiting Gait Function Factors Limiting Gait Function Decreased Activity Tolerance, Decreased Strength,Limited Range of Motion,Pain,Poor Balance Comments Gait Comments Pt ambulated with short and halting steps but was safe with FWW CGA. Stair Climbing Assessment Comments Stair Climbing Comments Not assessed. PT-Balance Assessment Sitting Balance and Reactions Static Sitting Balance Ability Good Dynamic Sitting Balance Ability Good Standing Balance and Reactions Static Standing Balance Ability Fair Dynamic Standing Balance Ability Fair Device Used FWW M5 PT-IP Objective Assessments Start: 01/13/21 08:18 Freq: NEEDED Status: Active Protocol: Document 01/13/21 11:30 AW (Rec: 01/13/21 11:56 AW [id number]) Orientation Orientation/Cognition Level of Alertness Alert Orientation Name,Day of Week,Place, Situation Language Function Ability No Deficits Noted Safety Awareness Understands Safety Issues Memory Description No Deficits Noted Gross Range of Motion Lower Extremity ROM Assessment Within Functional Limits Strength Lower Extremity Strength Assessment Bilaterally Impaired Hip 4-/5 Knee 4/5 Ankle 4+/5 Sensation Assessment Sensation Gross Sensation WNL Comments Sensation Comments Pt reports sensation has returned to his right foot and he is not having pain in his legs. M6 PT-IP Treatment Start: 01/13/21 08:18 Freq: NEEDED Status: Active Protocol: Document 01/13/21 11:30 AW (Rec: 01/13/21 11:56 AW [id number]) Physical Therapy Treatment Education Education Provided Precautions,Weight Bearing Status,Post-Op Packet,Safety M7 PT-IP Assessment and Plan Start: 01/13/21 08:18 Freq: NEEDED Status: Active Protocol: Document 01/13/21 11:30 AW (Rec: 01/13/21 11:56 AW [id number]) PT Summary Assessment and Plan Potential Rehabilitation Potential Good Status of Condition at Evaluation Evolving Summary Impairments Pain,ROM,Strength,Balance,Bed Mobility,Transfers,Gait, Activity Tolerance Assessment Summary Leif is a 50 yo man seen for PT evaluation on POD1 following L3-S1 TLIF. He is independent in all regards at baseline. He lives with his , Nicolasa, who is a HOOKER ON on this acute care unit. She will be available to assist the pt at discharge. On evaluation, pt is requiring mod assist with bed mobility, sit to stand, and transfers. Continued acute PT is warranted to improve pt's mobility prior to safe discharge home with family assist. PT will conduct caregiver training beginning this PM with pt's . Goals Bed Mobility Goal Standby Assistance Transfer Goal Standby Assistance,Front Wheeled Walker Gait Goal Standby Assistance,Front Wheel Walker Gait Distance 200 Other Goals - up/down 1 step with R rail ascending Days to Meet Goals 4 Frequency of Treatment Frequency Of Treatment Twice a Day Treatment Plan Physical Therapy Treatment Plan Bed Mobility Training,Transfer Training,Gait Training, Therapeutic Exercise,Balance Retraining,Post Op Education, Discharge Planning,Hot or Cold Pack,Neuromuscular Re-ed Other Recommendations and Next Treatment caregiver training with ; Focus bed mob; transfers; gait; stairs when able Precautions Lumbar Precautions Log Roll,No Twisting,Limit Bending,Lifting Restriction of 10 lbs,Gait Belt above Incisional Area Recommendations To Nursing Amount of Assist Needed 1 Person Assist Discharge Recommendations PT Discharge Recommendations Home with Assistance, Outpatient PT Transportation Needs at Discharge Private Vehicle
[2021-01-13] MEDS: DEXAMETHASONE 4 MG/ML VIAL IV ×2 (11:53→17:58)
--- NOTE | 2021-01-13 14:38 | PT.IPTN ---
Current Diagnoses Spondylolisthesis, lumbosacral region (01/12/21) Spinal stenosis, lumbar region without neurogenic claudication (01/12/21) Intervertebral disc disorders with radiculopathy, lumbar region (01/12/21) Surgery Performed Operation Date: 01/12/21 07:45 Actual Procedures p L3-4, L4-5, L5-S1 TLIF with posterior instrumentation - Charlotte De La Paz MD Physical Therapy Treatment Note M2 PT-IP Current Condition Start: 01/13/21 08:18 Freq: NEEDED Status: Active Protocol: Document 01/13/21 11:30 AW (Rec: 01/13/21 11:56 AW [id number]) Physical Therapy Current Condition Current Condition Evaluation Date 01/13/21 Treatment Diagnosis L3-4 L4-5 L5-S1 TLIF; difficulty in walking Onset Date 01/12/21 Precautions Lumbar Precautions Log Roll,No Twisting,Limit Bending,Lifting Restriction of 10 lbs,Gait Belt above Incisional Area M3 PT-IP Subjective Start: 01/13/21 08:18 Freq: NEEDED Status: Active Protocol: Document 01/13/21 14:38 AW (Rec: 01/13/21 16:01 AW [id number]) Subjective Physical Therapy Visit Type Type Treatment Note Visit Start Time 14:22 Visit Stop Time 14:38 Total Visit Minutes 16 Notes Pt's was present throughout treatment. 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 SUPERVISOR Visits 0 Physical Therapy Visit Comments Patient Comments Pt is willing to participate with PT Therapy Pain Assessment Pain When Pain Assessed During Mobility Pain Present Pain Present Pain Reported Location back Intensity 5 Scale Used unchanged from at rest Pain Management Techniques Distraction,Timing of Activity with Medications M4 PT-IP Mobility and Gait Start: 01/13/21 08:18 Freq: NEEDED Status: Active Protocol: Document 01/13/21 14:38 AW (Rec: 01/13/21 16:01 AW [id number]) PT-Bed Mobility Assessment Rolling Type of Rolling Log Rolling,Roll to Left Level of Assist Standby Assistance,1 Person Assistance Supine to Sit Supine to Sit Minimal Assistance,1 Person Assistance,Bedrails Scooting Scooting to Edge of Bed Standby Assistance PT-Transfer Assessment Sit to and From Stand Sit to and from Stand Contact Guard Assistance,1 Person Assistance,Use of Upper Extremities Equipment Transfer Assistive Device Gait Belt,Front Wheeled Walker Orthotic/Prosthetic Devices or Brace: No Transfers Transfer Destination Chair Transfer Technique ambulated with FWW Transfer Ability Level of Assist Contact Guard Assistance,1 Person Assistance,Use of Upper Extremities Comments Mobility Comments Pt was sitting up in bed as PT arrived. He completed log roll to his left SBA with cues and sidelying to sit min A x 1. He was able to stand from the bed CGA with good uncued knee extension and improved stability compared with morning session. Pt ambulated slowly with FWW SBA a total of 60 feet with four standing rest breaks. Pt maintained good mechanics with FWW, demonstrating good postural control and balance. On return to the room, pt transferred to the chair CGA. He was positioned with call light and tray table in reach. , Nicolasa, remained in the room. Gait Assessment Gait Gait Assistance Required: Standby Assistance Distance (Feet) 60 Able to Maintain Weight Bearing Status Yes During Gait Assistive Devices Assistive Device Gait Belt,Front Wheeled Walker Orthotic/Prosthetic Devices or Brace: No Gait Deviations General Gait Pattern Antalgic,Decreased Stride Length,Decreased Feet Clearance Factors Limiting Gait Function Factors Limiting Gait Function Decreased Activity Tolerance, Decreased Strength,Limited Range of Motion,Pain,Poor Balance Comments Gait Comments Pt responded well to cues to push the walker forward with each step vs step-to patterning. Stair Climbing Assessment Comments Stair Climbing Comments Not assessed. Pt did not feel ready. PT-Balance Assessment Sitting Balance and Reactions Static Sitting Balance Ability Good Dynamic Sitting Balance Ability Good Standing Balance and Reactions Static Standing Balance Ability Good Dynamic Standing Balance Ability Good Device Used FWW Comments Other Balance Tests/Deviations/Treatment Improved stability this : session with no sign of knee buckling or LOB. M5 PT-IP Objective Assessments Start: 01/13/21 08:18 Freq: NEEDED Status: Active Protocol: Document 01/13/21 11:30 AW (Rec: 01/13/21 11:56 AW [id number]) Orientation Orientation/Cognition Level of Alertness Alert Orientation Name,Day of Week,Place, Situation Language Function Ability No Deficits Noted Safety Awareness Understands Safety Issues Memory Description No Deficits Noted Gross Range of Motion Lower Extremity ROM Assessment Within Functional Limits Strength Lower Extremity Strength Assessment Bilaterally Impaired Hip 4-/5 Knee 4/5 Ankle 4+/5 Sensation Assessment Sensation Gross Sensation WNL Comments Sensation Comments Pt reports sensation has returned to his right foot and he is not having pain in his legs. M6 PT-IP Treatment Start: 01/13/21 08:18 Freq: NEEDED Status: Active Protocol: Document 01/13/21 14:38 AW (Rec: 01/13/21 16:01 AW [id number]) Physical Therapy Treatment Education Education Provided Precautions,Safety Other Treatments Other Treatment Performed Reset wheels on pts own walker for improved stability/wider TERESA. M7 PT-IP Assessment and Plan Start: 01/13/21 08:18 Freq: NEEDED Status: Active Protocol: Document 01/13/21 14:38 AW (Rec: 01/13/21 16:01 AW [id number]) PT Summary Assessment and Plan Summary Impairments Pain,ROM,Strength,Balance,Bed Mobility,Transfers,Gait, Activity Tolerance Progress Towards Goals Progressing Toward Goals,Slow Progress due to Pain,Slow Progress due to Activity Tolerance Assessment Summary Leif improved all mobility this session from bed moblility to ambulation distance with decreased need for assist but could not tolerate much activity. PT will conduct stair training and caregiver training with pt 's at 929. Anticipate discharge home with assist once medically cleared . Goals Bed Mobility Goal Standby Assistance Transfer Goal Standby Assistance,Front Wheeled Walker Gait Goal Standby Assistance,Front Wheel Walker Gait Distance 200 Other Goals - up/down 1 step with R rail ascending CGA Days to Meet Goals 4 Frequency of Treatment Frequency Of Treatment Twice a Day Treatment Plan Physical Therapy Treatment Plan Bed Mobility Training,Transfer Training,Gait Training, Therapeutic Exercise,Balance Retraining,Post Op Education, Discharge Planning,Hot or Cold Pack,Neuromuscular Re-ed Other Recommendations and Next Treatment caregiver training with Focus 929; progress gait; stairs Precautions Lumbar Precautions Log Roll,No Twisting,Limit Bending,Lifting Restriction of 10 lbs,Gait Belt above Incisional Area Recommendations To Nursing Amount of Assist Needed 1 Person Assist Discharge Recommendations PT Discharge Recommendations Home with Assistance, Outpatient PT Transportation Needs at Discharge Private Vehicle
--- NOTE | 2021-01-13 14:51 | PM.PNPO.1 ---
Subjective Subjective Date Patient Seen: 01/13/21 Time Patient Seen: 14:51 Interval history: Patient states he is doing well overall and is in mild discomfort at rest. He notes that he has gradually started to feel better since the surgery. At this time the patient denies fever, chills, nausea, chest pain, shortness of breath, or urinary retention. He reports good success with physical therapy today ambulating the halls with the assistance of a front wheeled walker. Exam Vital Signs (past 8 hours): - 01/13/21 09:16 01/13/21 13:09 Temperature 99.2 F 98.7 F Pulse Rate 79 80 Respiratory Rate 18 16 Blood Pressure 133/70 130/68 Pulse Oximetry 97 96 Oxygen Delivery Method Nasal Cannula Oxygen Flow Rate 0 Narrative Exam Narrative: 50-year-old male postop day 2. Patient is resting comfortably in chair, is in no acute distress, is alert and oriented x3. Skin is warm and dry, and the skin surrounding the incision site is free of erythema, warmth, induration, or discharge. Dressing over the incision site is clean, dry, and intact. Good sensation appreciated throughout the bilateral lower extremities to light touch. Hip flexion performed bilaterally without difficulty or discomfort. Ankle dorsiflexion, plantar flexion, eversion, inversion performed bilaterally without difficulty or discomfort. Calves are soft and nontender, negative Homans sign. Capillary refill less than 2 seconds, palpable pulse appreciated. No other signs of DVT appreciated. Const General: cooperative, healthy appearing and comfortable Resp Effort & Inspection: normal respiratory effort and able to speak in complete sentences Skin General: no rashes or lesions noted Objective Labs Result Diagrams: 01/13/21 05:15 Labs: Laboratory Results - last 24 hr 01/13/21 05:15 Hgb 11.6 L Hct 34.4 L [facility] Medical History Chronic cough Controlled type 2 diabetes mellitus (01/01/13) Elbow fracture, right (1988) Elevation of muscle enzyme (2007) Hyperlipidemia (2008) Intervertebral disc disorder with radiculopathy of lumbar region Left ankle sprain Low back pain Lumbar strain Morbid obesity (03/01/16) Muscle spasm Numbness Positive PPD (1990) Right lateral epicondylitis Skin tag Spasm of back muscles Spinal stenosis Tinnitus Surgical History Anesthesia History of colonoscopy Hx of LASIK (2004) Hx of removal of cyst Status post arthroscopy Family History Father Age: 78 Diabetes mellitus Heart disease Hyperlipidemia Mother Heart disease Hypertension High cholesterol Heart attack Grandfather Heart disease Hypertension Grandmother No problems noted. Social History marital status: household members: spouse Smoking Status: Never smoker alcohol intake: former substance use type: does not use Assessment & Plan Post-op Postoperative Procedures: Procedures Operation Date: 01/12/21 07:45 Actual Procedures Side Surgeon p L3-4, L4-5, L5-S1 TLIF with posterior instrumentation Charlotte De La Paz MD Postoperative day: 1 Postoperative status: doing well Postoperative plan: ambulate Postoperative plan narrative: Patient is to continue working on ambulation with the assistance of a front wheeled walker with physical therapy. Current pain management regimen is to be continued as it is adequately controlled this patient's pain level at this time. Patient is to avoid bending, twisting, or lifting in excess of 10 lb. Discharge likely home tomorrow. Time Spent With Patient Time with patient: less than 15 minutes
--- NOTE | 2021-01-13 15:30 | PC.NURSE ---
Pt with improved pain control. Reports normal sensation to BLE's. Pain medication increased and dexamethasone IV initiated this shift with good effect. Saline locked IVF, good po intake and dc'd enwton at 1400. Pt able to void at 1445
--- NOTE | 2021-01-13 16:13 | OT.IP.EVAL ---
Current Diagnoses Spondylolisthesis, lumbosacral region (01/12/21) Spinal stenosis, lumbar region without neurogenic claudication (01/12/21) Intervertebral disc disorders with radiculopathy, lumbar region (01/12/21) Surgery Performed Operation Date: 01/12/21 07:45 Actual Procedures p L3-4, L4-5, L5-S1 TLIF with posterior instrumentation - Charlotte De La Paz MD Past Medical History (Last Reviewed 01/13/21 @ 14:53 by Wes Capellan PA-C) Chronic cough Controlled type 2 diabetes mellitus (01/01/13) Elbow fracture, right (1988) Elevation of muscle enzyme (2007) Hyperlipidemia (2008) Intervertebral disc disorder with radiculopathy of lumbar region Left ankle sprain Low back pain Lumbar strain Morbid obesity (03/01/16) Muscle spasm Numbness Positive PPD (1990) Right lateral epicondylitis Skin tag Spasm of back muscles Spinal stenosis Tinnitus Surgical History (Last Reviewed 01/13/21 @ 14:53 by Wes Capellan PA-C) Anesthesia History of colonoscopy Hx of LASIK (2003) Hx of removal of cyst Status post arthroscopy Occupational Therapy Inpatient Evaluation/Re-Eval M1 PT/OT-IP Prior Functional Status Start: 01/13/21 08:18 Freq: NEEDED Status: Active Protocol: Document 01/13/21 15:50 [facility] (Rec: 01/13/21 17:56 [facility] [id number]) Medical Review Prior Functional Status Medical History Reviewed Yes Communication WNL. Pt is an effective verbal communicator. Mobility and Gait Independent without AD Activities of Daily Living and IADL's Independent with all ADL's and IADL's. Prior Functional Level (Other details) Pt has had persistent low back pain and RLE pain/numbness. Social History Household Members spouse Living Arrangements House Number of Floors (Floors) One Floor Number of Stairs To Enter/Railing? 2 DOMINIQUE at front of house with no railing. 1 DOMIN[address] through garage with a dryer on the right and cabinet on the left. 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 He lives in [place] with his , Nicolasa, who will be available and able to support him at home when he discharges. M2 OT-IP Current Condition Start: 01/13/21 17:44 Freq: Status: Active Protocol: Document 01/13/21 15:50 [facility] (Rec: 01/13/21 17:56 [facility] [id number]) Occupational Therapy Current Condition Current Condition Evaluation Date 01/13/21 Treatment Diagnosis S/p L3-4, L4-5, L5-S1 TLIF Diagnosis Onset Date 01/12/21 Post Operative Precautions Lumbar Precautions Log Roll,No Twisting,Limit Bending,Lifting Restriction of 10 lbs,Gait Belt above Incisional Area M3 OT- IP Subjective and Pain Start: 01/13/21 17:44 Freq: Status: Active Protocol: Document 01/13/21 15:50 [facility] (Rec: 01/13/21 17:56 [facility] [id number]) OT- Subjective Occupational Therapy Visit Type Type Initial Evaluation Visit Start Time 15:50 Visit Stop Time 16:13 Total Visit Minutes 23 Occupational Therapy Visit Comments Patient Comments Pt agreed to get up with OT. Patient/Caregiver Goals To go home. OT Pain Assessment Pain When Pain Assessed During Mobility Pain Present Pain Present Pain Reported Location back Intensity 4 Scale Used Numeric (0 - 10) M4 OT- IP ADL's Start: 01/13/21 17:44 Freq: Status: Active Protocol: Document 01/13/21 15:50 [facility] (Rec: 01/13/21 17:56 [facility] [id number]) OT [id number] Comments OT Self-Feeding Comments Not at meal time. OT ADL-Grooming Comments OT Grooming Comments Not performed. OT ADL-Oral Care Comments Oral Care Comments Pt not wanting to do at this time. Educated best to spit into a cup to best follow his back precautions or hinge at his hips. OT ADL-Dressing General Eval Lower Body Dressing Ability Maximum Assistance Comments OT Dressing Comments Able to practice LB dressing equipment for needs. OT ADL-Toileting Comments OT Toileting Comments Pt not having to use the bathroom. Suggested use of urinal at night if needed. Pt states did get a RTS with handles. OT ADL-Bathing Comments OT Bathing Comments To do showering and caregiver training with his tomorrow. M5 OT- IP IADL's Start: 01/13/21 17:44 Freq: Status: Active Protocol: Document 01/13/21 15:50 [facility] (Rec: 01/13/21 17:56 [facility] [id number]) OT-Instrumental Activities of Daily Living Home Safety Awareness Awareness of Need for Assistance at Home Good Awareness Ability to Problem Solve Emergency Able to Problem Solve Situations Home Safety Comments Pt has a supportive that will be able to assist him as needed and coming in for caregiver training tomorrow. M6 OT- IP Functional Cognition Start: 01/13/21 17:44 Freq: Status: Active Protocol: Document 01/13/21 15:50 [facility] (Rec: 01/13/21 17:56 [facility] [id number]) Cognitive Factors Limiting Selfcare Function Cognitive Ability Level of Alertness Alert Patient Orientation Name,Place,Situation Attention Span Ability Capable of Focused Attention, Capable of Sustained Attention Ability to Follow Commands Able to Follow One Step Commands Memory Description No Deficits Noted Safety Awareness Decreased Ability to Apply Precautions Cognitive Comments Cognitive Assessment Comments VC for safety awareness to push up from the bed versus handles of FWW. OT- Vision and Hearing OT- Hearing Assessment OT- Hearing Assessment WFL M7 OT- IP Mobility and Balance Start: 01/13/21 17:44 Freq: Status: Active Protocol: Document 01/13/21 15:50 [facility] (Rec: 01/13/21 17:56 [facility] [id number]) OT- Bed Mobility Assessment Rolling Type of Rolling Roll to Right Level of Assistance Standby Assistance Supine to Sit Supine to Sit Assist Contact Guard Assistance OT-Transfer Assessment Sit to and From Stand Sit to and from Stand Contact Guard Assistance Transfers Transfer Ability Contact Guard Assistance Technique Transfer Destination Bed,Chair Transfer Technique Stand Step Pivot Devices Transfer Assistive Devices Gait Belt,Front Wheeled Walker Comments Mobility Comments CGA for bed mobility and pt only wanting to do a transfer at this time with FWW. OT- Balance Assessment Sitting Balance and Reactions Static Sitting Balance Ability Normal Dynamic Sitting Balance Ability Good Standing Balance and Reactions Static Standing Balance Ability Fair M8 OT- IP Objective Assessments Start: 01/13/21 17:44 Freq: Status: Active Protocol: Document 01/13/21 15:50 [facility] (Rec: 01/13/21 17:56 [facility] [id number]) OT Gross Range of Motion Upper Extremity Range of Motion Assessment Within Functional Limits OT Strength Upper Extremity Strength Assessment Within Functional Limits M9 OT- IP Assessment and Plan Start: 01/13/21 17:44 Freq: Status: Active Protocol: Document 01/13/21 15:50 [facility] (Rec: 01/13/21 17:56 [facility] [id number]) OT Summary Assessment and Plan Potential Rehabilitation Potential Good Analytic Complexity at Evaluation Low Summary OT Impairments Pain,Balance,Functional Mobility,Grooming,Dressing, Toileting,Bathing,Toilet Transfers,Shower Transfers, Activity Tolerance Progress Towards Goals Slow Progress due to Pain,Slow Progress due to Activity Tolerance Assessment Summary Pt low complexity and main barriers are steps, needing assist for ADL's, and mobility one person at this time. Pt has a supportive to come in for caregiver training tomorrow. To issue pt LB dressing equipment tomorrow. Goals Grooming Goal Independent Dressing Goal Independent Toileting Goal Independent Bathing Goal Independent Toilet Transfer Goal Independent Shower Transfer Goal Independent Patient/Caregiver Education Goal Demonstrate Post-Op Precautions,Caregiver Independent Assisting Patient Days to Meet Goals 3 Frequency of Treatment Frequency Of Treatment Once a Day Treatment Plan OT Treatment Plan ADL Training,Functional Cognition Training,Functional Mobility,Patient/Family Education,Discharge Planning Other Treatment Recommendations and Next Caregiver training and shower Treatment Focus Discharge Recommendations OT Discharge Recommendations Home with Assistance Transportation Needs at Discharge Private Vehicle
[2021-01-13] MEDS: ATORVASTATIN 20 MG TABLET PO (20:54)
[2021-01-13] MEDS: SENNOSIDES 8.6 MG TABLET 17.2 MG PO (20:54)
[2021-01-14] MEDS: HYDROMORPHONE 1 MG INJ IV ×2 (00:26→15:33)
[2021-01-14] MEDS: DEXAMETHASONE 4 MG/ML VIAL IV ×3 (00:26→12:17)
--- NOTE | 2021-01-14 03:39 | PC.NURSE ---
VSS. AxO x4. Pain 4-10. PRN oxycodone, hydromorphone, and Tylenol given with mild relief. Patient states it is hard to find a comfortable position. at bedside. Calls appropriately, bed low.
[2021-01-14 06:00] VITALS: BP 135/75; PULSE 81; RESP 18; TEMP 36.5; O2SAT 95
[2021-01-14] MEDS: ACETAMINOPHEN 325 MG TABLET 650 MG PO (06:01)
[2021-01-14] MEDS: OXYCODONE IR 5 MG TABLET 10 MG PO ×4 (06:01→15:29)
[2021-01-14 08:00] VITALS: BP 111/59; PULSE 66; RESP 16; TEMP 36.4; O2SAT 98
--- NOTE | 2021-01-14 08:25 | P.PN_ITS ---
Subjective Subjective Date Patient Seen: 01/14/21 Time Patient Seen: 08:25 Interval history: Patient states he is doing well overall and is in minimal discomfort at rest. He states that he feels his condition is improved significantly since yesterday. He notes that his work with PT has gone successfully so far. At this time the patient denies fever, chills, nausea, chest pain, shortness of breath, or urinary retention. He notes that he is looking forward to possibly being discharged home today. Exam Vital Signs (past 8 hours): - 01/14/21 06:00 Temperature 97.7 F Pulse Rate 81 Respiratory Rate 18 Blood Pressure 135/75 Pulse Oximetry 95 Oxygen Delivery Method Nasal Cannula Oxygen Flow Rate 0 Narrative Exam Narrative: Pleasant 50-year-old male postop day 2. Patient is resting comfortably in bed, is in no acute distress, is alert and oriented x3. Skin is warm and dry, and the skin surrounding the incision site is free of erythema, warmth, induration, or discharge. Dressing over the incision site is clean, dry, and intact. Good sensation appreciated throughout the bilateral lower extremities to light touch. Hip flexion performed bilaterally without difficulty or discomfort. Ankle dorsiflexion, plantar flexion, eversion, inversion performed bilaterally. Calves are soft and nontender, negative Homans sign. Palpable pulses appreciated, capillary refill less than 2 seconds. No other signs of DVT appreciated at this time. Const General: cooperative, healthy appearing and comfortable Resp Effort & Inspection: normal respiratory effort and able to speak in complete sentences Skin General: no rashes or lesions noted Objective Labs Result Diagrams: 01/13/21 05:15 [facility] Medical History Chronic cough Controlled type 2 diabetes mellitus (01/01/13) Elbow fracture, right (1988) Elevation of muscle enzyme (2007) Hyperlipidemia (2008) Intervertebral disc disorder with radiculopathy of lumbar region Left ankle sprain Low back pain Lumbar strain Morbid obesity (03/01/16) Muscle spasm Numbness Positive PPD (1990) Right lateral epicondylitis Skin tag Spasm of back muscles Spinal stenosis Tinnitus Surgical History Anesthesia History of colonoscopy Hx of LASIK (2003) Hx of removal of cyst Status post arthroscopy Family History Father Age: 78 Diabetes mellitus Heart disease Hyperlipidemia Mother Heart disease Hypertension High cholesterol Heart attack Grandfather Heart disease Hypertension Grandmother No problems noted. Social History marital status: household members: spouse Smoking Status: Never smoker alcohol intake: former substance use type: does not use Assessment & Plan Post-op Postoperative Procedures: Procedures Operation Date: 01/12/21 07:45 Actual Procedures Side Surgeon p L3-4, L4-5, L5-S1 TLIF with posterior instrumentation Charlotte De La Paz MD Postoperative day: 2 Postoperative status: doing well Postoperative plan: ambulate Postoperative plan narrative: Patient is to continue working on ambulation with the assistance of a front wheeled walker with physical therapy. Patient is to avoid bending, twisting, or lifting in excess of 10 lb. Current pain management regimen is to be continued as it is adequately controlled the patient's pain level at this time. Pending successful work with PT patient is likely to be discharged home today. Time Spent With Patient Time with patient: less than 15 minutes
--- NOTE | 2021-01-14 08:29 | PM.DS.1 ---
History of Present Illness History of Present Illness Date Patient Seen: 01/14/21 Time Patient Seen: 08:29 Chief complaint: INPT Narrative: Refer to previous HPI. Discharge Providers Provider Date of admission: 01/12/21 06:18 Discharge Date: 01/14/21 Primary care physician: Eliu Panda MD Consults: 01/12/21 15:00 Consult to Occupational Therapy Evaluate & Treat Comment: Physician Instructions: Evaluate and treat Consult to Physical Therapy Evaluate & Treat Comment: Physician Instructions: Evaluate and Treat Discharge provider: Wes Capellan PA-C Summary Hospital Course Discharge Diagnosis: L3-4, L4-5, L5-S1 spondylolisthesis L3-4, L4-5, L5-S1 spinal stenosis L3-4, L4-5, L5-S1 spondylosis with radiculopathy Status post L3-4, L4-5, L5-S1 Postero-lateral and posterior interbody fusion, L3-4, L4-5, L5-S1 interbody cage placement, L3-4, L4-5, L5-S1 decompressive laminectomy with bilateral facetecomies, L3-4, L4-5, L5-S1 Posterior segmental instrumentation, [facility] of bone marrow from iliac crest, Utilization of microsurgical technique and operating microscope Hospital Course: Patient was admitted to the hospital following the above-listed procedure for the above-listed diagnosis. Following the procedure the patient has been convalescing appropriately in his pain is managed with his current pain management regimen. Patient has remained weight-bearing as tolerated with the assistance of a front wheel walker, and he is avoid bending, twisting, or lifting in excess of 10 lb. Dressing over the incision site has remained intact and has been changed as needed. Throughout his time in the hospital the patient has denied fever, chills, nausea, chest pain, shortness of breath, or urinary retention. Status at Discharge Cognitive/behavioral status at discharge: oriented Functional status at discharge: uses cane/walker Overall status at discharge: patient is progressing back to baseline Exam Vital Signs (past 8 hours): - 01/14/21 06:00 01/14/21 08:00 Temperature 97.7 F 97.5 F L Pulse Rate 81 66 Respiratory Rate 18 16 Blood Pressure 135/75 111/59 L Pulse Oximetry 95 98 Oxygen Delivery Method Nasal Cannula Oxygen Flow Rate 0 Narrative Exam Narrative: Pleasant 50-year-old male postop day 2. Patient is resting comfortably in bed, is in no acute distress, is alert and oriented x3. Skin is warm and dry, and the skin surrounding the incision site is free of erythema, warmth, induration, or discharge. Dressing over the incision site is clean, dry, and intact. Good sensation appreciated throughout the bilateral lower extremities to light touch. Hip flexion performed bilaterally without difficulty or discomfort. Ankle dorsiflexion, plantar flexion, eversion, inversion performed bilaterally. Calves are soft and nontender, negative Homans sign. Palpable pulses appreciated, capillary refill less than 2 seconds. No other signs of DVT appreciated at this time. Const General: cooperative, healthy appearing and comfortable Resp Effort & Inspection: normal respiratory effort and able to speak in complete sentences Skin General: no rashes or lesions noted Objective Labs Result Diagrams: 01/13/21 05:15 [facility] Medical History Chronic cough Controlled type 2 diabetes mellitus (01/01/13) Elbow fracture, right (1988) Elevation of muscle enzyme (2007) Hyperlipidemia (2008) Intervertebral disc disorder with radiculopathy of lumbar region Left ankle sprain Low back pain Lumbar strain Morbid obesity (03/01/16) Muscle spasm Numbness Positive PPD (1990) Right lateral epicondylitis Skin tag Spasm of back muscles Spinal stenosis Tinnitus Surgical History Anesthesia History of colonoscopy Hx of LASIK (2003) Hx of removal of cyst Status post arthroscopy Family History Father Age: 78 Diabetes mellitus Heart disease Hyperlipidemia Mother Heart disease Hypertension High cholesterol Heart attack Grandfather Heart disease Hypertension Grandmother No problems noted. Social History marital status: household members: spouse Smoking Status: Never smoker alcohol intake: former substance use type: does not use Discharge Assessment & Plan Assessment and Plan Assessment: Patient is doing well. Plan of Treatment: First postoperative visit in clinic is scheduled for 2 weeks following discharge from the hospital. Current pain management regimen is to be continued as it is adequately controlled the patient's pain level at this time. Patient is to remain weight-bearing as tolerated with the assistance of a front wheel walker. Also, patient is to avoid bending, twisting, or lifting in excess of 10 lb. Dressing over the incision site can be changed as needed if it becomes damaged or soiled. Avoid soaking the incision site or placing topical ointments over the incision site. Patient is to contact clinic with any concerns or questions. Any signs of increased redness, swelling, warmth, pain, or discharge from around the incision site should be reported to the clinic. Discharge Plan Discharge Plan Patient Disposition: Home Provider Discharge Comment: Patient cleared for discharge pending PT clearance. Discharge orders & Medications Prescriptions: New acetaminophen 325 mg Tablet 650 mg PO Q6HR PRN (Reason: Pain, Mild (1-3)) Qty: 90 RF: 0 oxycodone 5 mg Tablet 10 mg PO Q3HR PRN (Reason: Pain, Severe (7-10)) Qty: 42 RF: 0 Continued (DME) one touch verio test strips Qty: 300 RF: 3 (DME) Lancets Qty: 100 RF: 11 simvastatin 40 mg tablet 40 mg PO QDAY Qty: 90 RF: 3 metformin 1,000 mg tablet See Rx Instructions .ROUTE .COMPLEX Qty: 180 RF: 3 aspirin [Adult Aspirin Regimen] 81 mg tablet,delayed release (DR/EC) 81 mg PO DAILY Qty: 90 RF: 3 Follow up/Referrals: Eliu Panda MD [Primary Care Provider] - Diet/Activity/Treatments Diet: Diet as Tolerated Activity: Weight-bearing as tolerated with the assistance of a front wheeled walker. Avoid bending, twisting, or lifting in excess of 10 lb. Skin/Wound/Dressing Care Report to your healthcare provider any signs of infection, such as:: chills, fever, night sweats, increased pain, unusual drainage and unusual redness Dressing: Dressing over the incision site can be changed as needed if it becomes damaged or soiled. Other wound treatment: Avoid placing topical ointments over the incision site, avoid soaking the incision site. Visit Report/Discharge Packet Instructions: DI for Heart Failure, DI for Prescription Opioid Use, DI for Transforaminal Lumbar Interbody Fusion Stand Alone Forms: Surgery Discharge Discharge Data Primary Care Provider: Eliu Panda
[2021-01-14] MEDS: METFORMIN HCL 500 MG TABLET 1000 MG PO (09:00)
[2021-01-14] MEDS: ASPIRIN EC 81 MG TABLET PO (09:10)
[2021-01-14] MEDS: DOCUSATE 100 MG CAPSULE PO (09:10)
--- NOTE | 2021-01-14 10:31 | PT.IPTN ---
Current Diagnoses Spondylolisthesis, lumbosacral region (01/12/21) Spinal stenosis, lumbar region without neurogenic claudication (01/12/21) Intervertebral disc disorders with radiculopathy, lumbar region (01/12/21) Surgery Performed Operation Date: 01/12/21 07:45 Actual Procedures p L3-4, L4-5, L5-S1 TLIF with posterior instrumentation - Charlotte De La Paz MD Physical Therapy Treatment Note M2 PT-IP Current Condition Start: 01/13/21 08:18 Freq: NEEDED Status: Active Protocol: Document 01/13/21 11:30 AW (Rec: 01/13/21 11:56 AW [id number]) Physical Therapy Current Condition Current Condition Evaluation Date 01/13/21 Treatment Diagnosis L3-4 L4-5 L5-S1 TLIF; difficulty in walking Onset Date 01/12/21 Precautions Lumbar Precautions Log Roll,No Twisting,Limit Bending,Lifting Restriction of 10 lbs,Gait Belt above Incisional Area M3 PT-IP Subjective Start: 01/13/21 08:18 Freq: NEEDED Status: Active Protocol: Document 01/14/21 09:50 [facility]B (Rec: 01/14/21 11:05 CLB [id number]) Subjective Physical Therapy Visit Type Type Treatment Note Visit Start Time 09:50 Visit Stop Time 10:31 Total Visit Minutes 41 Notes present for CG training. Number of FLYER BUILDER Visits 1 Physical Therapy Visit Comments Patient Comments Pt is willing to participate with PT Patient Goals Return home with spouse support. Therapy Pain Assessment Pain When Pain Assessed During Mobility Pain Present Pain Present Pain Reported Location back Intensity 4 Scale Used unchanged from at rest Pain Management Techniques Modification of Treatment, Timing of Activity with Medications M4 PT-IP Mobility and Gait Start: 01/13/21 08:18 Freq: NEEDED Status: Active Protocol: Document 01/14/21 09:50 CLB (Rec: 01/14/21 11:05 CLB [id number]) PT-Bed Mobility Assessment Rolling Type of Rolling Log Rolling,Roll to Left Level of Assist Standby Assistance,1 Person Assistance Supine to Sit Supine to Sit Standby Assistance,1 Person Assistance Sit to Supine Sit to Supine Standby Assistance,1 Person Assistance Scooting Scooting to Edge of Bed Standby Assistance PT-Transfer Assessment Sit to and From Stand Sit to and from Stand Contact Guard Assistance,1 Person Assistance,Use of Upper Extremities Equipment Transfer Assistive Device Gait Belt,Front Wheeled Walker Orthotic/Prosthetic Devices or Brace: No Transfers Transfer Destination Bed,Chair Transfer Technique ambulated with FWW Transfer Ability Level of Assist Standby Assistance,1 Person Assistance,Use of Upper Extremities Comments Mobility Comments Pt in chair standing CGA provided by . Pt ambulated in javier w/FWW/CGA, pt climbed three steps with right rail CGA. Pt then ambulated in javier ~500+ft with good foot clearance and step length with cues for right foot placement as pt with slight scissor step, pt able to correct for remainder of ambulation. Pt returned to room performing stand to sit SBA and reverse LR with assisting with LE 's onto bed. After short rest pt performed LR>sidelying>sit SBA w/o increase in pain. Pt then returned to supine SBA w/ o need for assist with LE's. Pt left in bed with all needs within reach and present. Gait Assessment Gait Gait Assistance Required: Standby Assistance,Contact Guard Assist Distance (Feet) 500 Assistive Devices Assistive Device Gait Belt,Front Wheeled Walker Gait Deviations General Gait Pattern Antalgic,Decreased Stride Length,Decreased Feet Clearance Factors Limiting Gait Function Factors Limiting Gait Function Decreased Activity Tolerance, Decreased Strength,Limited Range of Motion,Pain,Poor Balance Comments Gait Comments see mobility comments Stair Climbing Assessment Evaluation Level of Assist On Stairs Contact Guard Assistance,1 Person Assistance Devices Stair Climbing Assistive Devices Right Railing Technique/Endurance Stair Climbing Direction Ascend and Descend Stair Climbing Technique Step to Step Number of Steps Climbed 3 Stair Climbing Set # Repetitions (reps) 1 Comments Stair Climbing Comments Pt able to appropriately and safely. PT-Balance Assessment Sitting Balance and Reactions Static Sitting Balance Ability Good Dynamic Sitting Balance Ability Good Standing Balance and Reactions Static Standing Balance Ability Good Dynamic Standing Balance Ability Good Device Used FWW M5 PT-IP Objective Assessments Start: 01/13/21 08:18 Freq: NEEDED Status: Active Protocol: Document 01/13/21 11:30 AW (Rec: 01/13/21 11:56 AW [id number]) Orientation Orientation/Cognition Level of Alertness Alert Orientation Name,Day of Week,Place, Situation Language Function Ability No Deficits Noted Safety Awareness Understands Safety Issues Memory Description No Deficits Noted Gross Range of Motion Lower Extremity ROM Assessment Within Functional Limits Strength Lower Extremity Strength Assessment Bilaterally Impaired Hip 4-/5 Knee 4/5 Ankle 4+/5 Sensation Assessment Sensation Gross Sensation WNL Comments Sensation Comments Pt reports sensation has returned to his right foot and he is not having pain in his legs. M6 PT-IP Treatment Start: 01/13/21 08:18 Freq: NEEDED Status: Active Protocol: Document 01/13/21 14:38 AW (Rec: 01/13/21 16:01 AW [id number]) Physical Therapy Treatment Education Education Provided Precautions,Safety Other Treatments Other Treatment Performed Reset wheels on pts own walker for improved stability/wider TERESA. M7 PT-IP Assessment and Plan Start: 01/13/21 08:18 Freq: NEEDED Status: Active Protocol: Document 01/14/21 09:50 CLB (Rec: 01/14/21 11:05 CLB [id number]) PT Summary Assessment and Plan Summary Impairments Pain,ROM,Strength,Balance,Bed Mobility,Transfers,Gait, Activity Tolerance Progress Towards Goals Progressing Toward Goals Assessment Summary Pt recalls 3/3 back precautions and shows good follow through during mobility . Pt has good pain control this session with pain steady during all mobility 11/27. Pt able to ambulate ~500ft w/FWW and providing SBA-CGA. Pt able to climb stairs with assisting. Pt able to perform LR in and out of bed with minimal assist from his . Pt seems able to d/c home with to assist when medically stable. Goals Bed Mobility Goal Standby Assistance Transfer Goal Standby Assistance,Front Wheeled Walker Gait Goal Standby Assistance,Front Wheel Walker Gait Distance 200 Other Goals - up/down 1 step with R rail ascending CGA Days to Meet Goals 4 Frequency of Treatment Frequency Of Treatment Twice a Day Treatment Plan Physical Therapy Treatment Plan Bed Mobility Training,Transfer Training,Gait Training, Therapeutic Exercise,Balance Retraining,Post Op Education, Discharge Planning,Hot or Cold Pack,Neuromuscular Re-ed Precautions Lumbar Precautions Log Roll,No Twisting,Limit Bending,Lifting Restriction of 10 lbs,Gait Belt above Incisional Area Recommendations To Nursing Amount of Assist Needed 1 Person Assist Discharge Recommendations PT Discharge Recommendations Home with Assistance, Outpatient PT Transportation Needs at Discharge Private Vehicle
--- NOTE | 2021-01-14 11:04 | OT.IP.TRT ---
Current Diagnoses Spondylolisthesis, lumbosacral region (01/12/21) Spinal stenosis, lumbar region without neurogenic claudication (01/12/21) Intervertebral disc disorders with radiculopathy, lumbar region (01/12/21) Surgery Performed Operation Date: 01/12/21 07:45 Actual Procedures p L3-4, L4-5, L5-S1 TLIF with posterior instrumentation - Charlotte De La Paz MD Occupational Therapy Treatment Note M2 OT-IP Current Condition Start: 01/13/21 17:44 Freq: Status: Active Protocol: Document 01/13/21 15:50 [facility] (Rec: 01/13/21 17:56 [facility] [id number]) Occupational Therapy Current Condition Current Condition Evaluation Date 01/13/21 Treatment Diagnosis S/p L3-4, L4-5, L5-S1 TLIF Diagnosis Onset Date 01/12/21 Post Operative Precautions Lumbar Precautions Log Roll,No Twisting,Limit Bending,Lifting Restriction of 10 lbs,Gait Belt above Incisional Area M3 OT- IP Subjective and Pain Start: 01/13/21 17:44 Freq: Status: Active Protocol: Document 01/14/21 13:02 [facility] (Rec: 01/14/21 13:10 [facility] [id number]) OT- Subjective Occupational Therapy Visit Type Type Treatment Note Visit Start Time 10:30 Visit Stop Time 11:04 Total Visit Minutes 34 Occupational Therapy Visit Comments Patient Comments Pt's present for caregiver training for OT needs. Patient/Caregiver Goals TO go home. OT Pain Assessment Pain When Pain Assessed At Rest Pain Present Pain Present Pain Reported Location back Intensity 4 Scale Used Numeric (0 - 10) M4 OT- IP ADL's Start: 01/13/21 17:44 Freq: Status: Active Protocol: Document 01/14/21 13:02 [facility] (Rec: 01/14/21 13:10 [facility] [id number]) OT ADL-Dressing General Eval Lower Body Dressing Ability Moderate Assistance Comments OT Dressing Comments Pt's assist pt to help put on his socks, otherwise pt able to use the gate guard to assist for LB dressing needs. OT ADL-Bathing Bathing Type Bathing Type Shower General Evaluation Bathing Ability Moderate Assistance Areas Needing Assistance Wash/Dry Back,Wash/Dry Lower Extremities Comments OT Bathing Comments Pt's able to show good safety and understanding to be able to assist pt for showering needs. Pt states has a high tub and was determined may be easier to sit on the edge of the tub and then stand to scoot over to the shower chair. Suggested to try first with clothing on, or if able to find a tub bench that may accommodate the height tub, or do sponge bathing initially. Both pt and state good understanding to be sure to double check and triple check the suction cup grab bars that they plan on using in the shower before use. M5 OT- IP IADL's Start: 01/13/21 17:44 Freq: Status: Active Protocol: Document 01/13/21 15:50 [facility] (Rec: 01/13/21 17:56 [facility] [id number]) OT-Instrumental Activities of Daily Living Home Safety Awareness Awareness of Need for Assistance at Home Good Awareness Ability to Problem Solve Emergency Able to Problem Solve Situations Home Safety Comments Pt has a supportive that will be able to assist him as needed and coming in for caregiver training tomorrow. M6 OT- IP Functional Cognition Start: 01/13/21 17:44 Freq: Status: Active Protocol: Document 01/14/21 13:02 [facility] (Rec: 01/14/21 13:10 [facility] [id number]) Cognitive Factors Limiting Selfcare Function Cognitive Ability Level of Alertness Alert Patient Orientation Name,Place,Situation Attention Span Ability Capable of Focused Attention, Capable of Sustained Attention Ability to Follow Commands Able to Follow Multi-Step Commands Memory Description No Deficits Noted Safety Awareness No Deficits Noted Cognitive Comments Cognitive Assessment Comments Pt doing much better today , more alert, and able to follow back precautions well today. M7 OT- IP Mobility and Balance Start: 01/13/21 17:44 Freq: Status: Active Protocol: Document 01/14/21 13:02 [facility] (Rec: 01/14/21 13:10 [facility] [id number]) OT- Bed Mobility Assessment Rolling Type of Rolling Roll to Left Level of Assistance Standby Assistance Supine to Sit Supine to Sit Assist Standby Assistance Sit to Supine Sit to Supine Assist Minimal Assistance OT-Transfer Assessment Sit to and From Stand Sit to and from Stand Standby Assistance,Contact Guard Assistance Transfers Transfer Ability Contact Guard Assistance Technique Transfer Destination Bed,Chair,Shower Stall Transfer Technique Stand Step Pivot Devices Transfer Assistive Devices Gait Belt,Front Wheeled Walker Comments Mobility Comments Pt's able to carolyn/doff gait belt and safety assist pt for all transfer need with good safety for back precautions. OT- Gait Assessment Comments Gait Ability Comments CGA/SBA with FWW. OT- Balance Assessment Sitting Balance and Reactions Static Sitting Balance Ability Normal Dynamic Sitting Balance Ability Normal Standing Balance and Reactions Static Standing Balance Ability Good M8 OT- IP Objective Assessments Start: 01/13/21 17:44 Freq: Status: Active Protocol: Document 01/13/21 15:50 [facility] (Rec: 01/13/21 17:56 [facility] [id number]) OT Gross Range of Motion Upper Extremity Range of Motion Assessment Within Functional Limits OT Strength Upper Extremity Strength Assessment Within Functional Limits M9 OT- IP Assessment and Plan Start: 01/13/21 17:44 Freq: Status: Active Protocol: Document 01/14/21 13:02 [facility] (Rec: 01/14/21 13:10 [facility] [id number]) OT Summary Assessment and Plan Potential Rehabilitation Potential Good Analytic Complexity at Evaluation Low Summary Progress Towards Goals Progressing Toward Goals Assessment Summary Pt's able to complete all caregiver training for OT needs and to take pt home later today. LB dressing equipment issued to pt. Discharge Recommendations OT Discharge Recommendations Home with Assistance Transportation Needs at Discharge Private Vehicle
[2021-01-14 12:00] VITALS: BP 113/60; PULSE 65; RESP 16; TEMP 36.8; O2SAT 98
--- NOTE | 2021-01-14 14:45 | CM.DPC ---
DCP: continued: checked in now with pt and his spouse Maddi (well known to this DCplanner from her many years as lead COLLECTION ANALYST on acute care floor.). Maddi is taking 2 weeks off from work to support pt in his recovery at home. PT and OT have worked with pt and deemed him cleared for d/c when stable for same. Pt and Maddi confirm that KAREEM Harvey was here early this morning and said that he would return later today and completed the d/c orders. Pt says he is very pleased by his progress thus far and with the increased sensation he now has in his foot. P: likely home later today.
--- NOTE | 2021-01-14 15:00 | PC.NURSE ---
Pt A&OX3, working well with PT/OT. VSS, afebrile. Dressing CDI, showered with OT today. Pain managed well with oxycodone and tylenol, as well as dexamethasone effective to 3-11/27. Plan for discharge home this afternoon. Pt and educated about narcotics and constipation laxatives.
--- NOTE | 2021-01-14 17:00 | PC.NURSE ---
patient alert and orientated, discharge paperwork reviewed with patient and spouse at bedside. Patient and state understanding of teaching. Patient left in stable condition via wheelchair to personal vehicle.
== END 2021-01-14 16:30 | disposition home or self-care (01) | DRG 455 ==
PROVIDERS: Admitting Provider Orthopaedic Surgery Orthopaedic Surgery of the Spine; PCP Family Medicine; Referring Provider Orthopaedic Surgery Orthopaedic Surgery of the Spine; Visit Provider Orthopaedic Surgery Orthopaedic Surgery of the Spine
PROC: 0SG10AJ Fusion of 2 or more Lumbar Vertebral Joints with Interbody Fusion Device, Posterior Approach, Anterior Column, Open Approach (ICD-10-PCS; principal; 2021-01-12 07:45)
DX: M43.17 Spondylolisthesis, lumbosacral region (principal); M48.061 Spinal stenosis, lumbar region without neurogenic claudication; M51.16 Intervertebral disc disorders with radiculopathy, lumbar region; E11.9 Type 2 diabetes mellitus without complications; M48.07 Spinal stenosis, lumbosacral region; M47.26 Other spondylosis with radiculopathy, lumbar region; M47.27 Other spondylosis with radiculopathy, lumbosacral region; E78.5 Hyperlipidemia, unspecified; Z79.84 Long term (current) use of oral hypoglycemic drugs; R03.0 Elevated blood-pressure reading, without diagnosis of hypertension
CPT/HCPCS: 36415; 82962; 85014; 85018; 97116; 97161; 97165; 97530; 97535; C1776; C9290; J0131; J0330; J0690; J1100; J1170; J1815; J2405; J2704; J3010

== ENCOUNTER → 2021-02-17 09:08 | Outpatient (CLI) | payer OTHER, SELFPAY ==
[2021-01-12 15:47] VITALS: BMI 32.3
[2021-02-17 10:12] LABS: Add Manual Diff / Slide Review NO; Basophils Absolute Auto 0 /uL (0-100); Basophils Percent Auto 0.5 % (0-2); Eosinophils Absolute Auto 200 /uL (0-450); Eosinophils Percent Auto 3.8 % (2-4); Hematocrit 38.3 % (41-53); Hemoglobin 12.4 g/dL (13.5-17.5); Lymphocytes Absolute Auto 1800 /uL (1100-4500); Lymphocytes Percent Auto 29.2 % (25-40); Mean Corpuscular HGB Conc 32.3 % (30-36); Mean Corpuscular Hemoglobin 28.2 PG (26-34); Mean Corpuscular Volume 87.2 fL (80-100); Monocytes Absolute Auto 500 /uL (0-900); Neutrophils Absolute Auto 3500 /uL (1500-7000); Neutrophils Percent Auto 57.5 % (50-75); Platelet Count 236 X10^3/uL (150-400); Red Cell Distribution Width 13.2 % (11.6-14.8); White Blood Cell Count 6.1 X10^3/uL (4.5-11.0)
[2021-02-17 11:09] LABS: Hemoglobin A1C% w Est Avg Glu 6.4 % (4.0-6.0)
[2021-02-17 11:44] LABS: Alanine Aminotransferase 26 IU/L (<50); Albumin 4.5 g/dL (3.5-5.0); Albumin Globulin Ratio 1.9 (1.0-2.8); Alkaline Phosphatase 88 U/L (38-126); Aspartate Aminotransferase 23 IU/L (17-59); BUN Creatinine Ratio 20.3 (6-22); Bilirubin Total 0.5 mg/dL (0.2-1.3); Blood Urea Nitrogen 13 mg/dL (9-20); Calcium 9.7 mg/dL (8.4-10.2); Carbon Dioxide 28 mmol/L (22-32); Chloride 105 mmol/L (98-107); Cholesterol 139 mg/dL (140-199); Estimated Glomerular Filt Rate > 60.0 mL/min (>60); Globulin 2.4 g/dL (1.7-4.1); Glucose 110 mg/dL (70-100); HDL Cholesterol 39 mg/dL (40-60); HEMOLYSIS < 15 (0-50); LDL Cholesterol Calculated 75 mg/dL (<100); Potassium 4.2 mmol/L (3.4-5.1); Sodium 140 mmol/L (137-145); Total Protein 6.9 g/dL (6.3-8.2); Triglycerides 127 mg/dL (35-150)
[2021-02-17 12:12] LABS: TSH w/ Reflex to FT4 0.86 uIU/mL (0.47-4.68)
[2021-02-17 16:53] LABS: Creatinine Urine Random 77.8 mg/dL
[2021-02-17 17:04] LABS: Microalbumin Urine Random < 0.6 mg/dL (0-1.6)
== END ==
PROVIDERS: PCP Family Medicine; Referring Provider Family Medicine; Visit Provider Family Medicine
DX: E11.65 Type 2 diabetes mellitus with hyperglycemia (principal); E66.01 Morbid (severe) obesity due to excess calories; E78.5 Hyperlipidemia, unspecified
CPT/HCPCS: 36415; 80053; 80061; 82043; 82570; 83036; 84443; 85025

== ENCOUNTER → 2021-07-08 07:59 | Outpatient (CLI) | payer OTHER, SELFPAY ==
[2021-01-12 15:47] VITALS: BMI 32.3
[2021-07-08] MEDS: COVID-19 VACC #3, MRNA(MOD) 50 MCG/0.25 ML VIAL IM (08:15)
== END ==
PROVIDERS: PCP Family Medicine; Visit Provider Internal Medicine
DX: Z23 Encounter for immunization (principal)
CPT/HCPCS: 0013A; 91301

== ENCOUNTER → 2021-08-18 11:16 | Outpatient (CLI) | payer OTHER, SELFPAY ==
[2021-01-12 15:47] VITALS: BMI 32.3
[2021-08-18 12:34] LABS: Add Manual Diff / Slide Review NO; Basophils Absolute Auto 0 /uL (0-100); Basophils Percent Auto 0.5 % (0-2); Eosinophils Absolute Auto 100 /uL (0-450); Eosinophils Percent Auto 2.3 % (2-4); Hematocrit 43.2 % (41-53); Hemoglobin 14.4 g/dL (13.5-17.5); Lymphocytes Absolute Auto 2200 /uL (1100-4500); Mean Corpuscular HGB Conc 33.4 % (30-36); Mean Corpuscular Hemoglobin 28.9 PG (26-34); Mean Corpuscular Volume 86.5 fL (80-100); Monocytes Absolute Auto 600 /uL (0-900); Monocytes Percent Auto 9.6 % (3-14); Neutrophils Absolute Auto 3300 /uL (1500-7000); Neutrophils Percent Auto 52.6 % (50-75); Platelet Count 248 X10^3/uL (150-400); Red Blood Cell Count 4.99 X10^6/uL (4.5-5.9); Red Cell Distribution Width 13.5 % (11.6-14.8); White Blood Cell Count 6.2 X10^3/uL (4.5-11.0)
[2021-08-18 12:45] LABS: Alanine Aminotransferase 19 IU/L (<50); Albumin 4.8 g/dL (3.5-5.0); Albumin Globulin Ratio 1.7 (1.0-2.8); Alkaline Phosphatase 71 U/L (38-126); Aspartate Aminotransferase 23 IU/L (17-59); BUN Creatinine Ratio 19.3 (6-22); Bilirubin Total 0.8 mg/dL (0.2-1.3); Blood Urea Nitrogen 16 mg/dL (9-20); Calcium 9.8 mg/dL (8.4-10.2); Carbon Dioxide 25 mmol/L (22-32); Chloride 105 mmol/L (98-107); Cholesterol 188 mg/dL (140-199); Estimated Glomerular Filt Rate > 60.0 mL/min (>60); Globulin 2.9 g/dL (1.7-4.1); Glucose 107 mg/dL (70-100); HDL Cholesterol 51 mg/dL (40-60); HEMOLYSIS < 15 (0-50); LDL Cholesterol Calculated 101 mg/dL (<100); Potassium 4.5 mmol/L (3.4-5.1); Sodium 140 mmol/L (137-145); Total Protein 7.7 g/dL (6.3-8.2); Triglycerides 181 mg/dL (35-150)
[2021-08-18 13:16] LABS: Thyroid Stimulating Hormone 1.87 uIU/mL (0.47-4.68)
[2021-08-18 15:53] LABS: Microalbumin Urine Random 1.9 mg/dL (0-1.6)
[2021-08-18 15:58] LABS: Creatinine Urine Random 155.1 mg/dL; Microalbumi Creatinin Ratio Ur 12.2 ug/mg CR (<30)
== END ==
PROVIDERS: PCP Family Medicine; Referring Provider Family Medicine; Visit Provider Family Medicine
DX: E78.2 Mixed hyperlipidemia (principal); E11.9 Type 2 diabetes mellitus without complications
CPT/HCPCS: 36415; 80053; 80061; 82043; 82570; 83036; 84443; 85025

== ENCOUNTER → 2022-02-19 11:02 | Outpatient (CLI) | payer OTHER, SELFPAY ==
[2021-01-12 15:47] VITALS: BMI 32.3
[2022-02-19 11:37] LABS: Glucose 115 mg/dL (70-100)
[2022-02-19 11:39] LABS: Hemoglobin A1C% w Est Avg Glu 6.3 % (4.0-6.0)
== END ==
PROVIDERS: PCP Family Medicine; Referring Provider Family Medicine; Visit Provider Family Medicine
DX: E11.65 Type 2 diabetes mellitus with hyperglycemia (principal)
CPT/HCPCS: 36415; 82947; 83036

== ENCOUNTER → 2022-09-29 08:47 | Outpatient (CLI) | payer OTHER, SELFPAY ==
[2021-01-12 15:47] VITALS: BMI 32.3
[2022-09-29 09:09] LABS: Add Manual Diff / Slide Review NO; Basophils Absolute Auto 0 /uL (0-100); Basophils Percent Auto 0.7 % (0-2); Eosinophils Absolute Auto 200 /uL (0-450); Eosinophils Percent Auto 3.5 % (2-4); Hematocrit 40.4 % (41-53); Hemoglobin 13.5 g/dL (13.5-17.5); Lymphocytes Absolute Auto 1700 /uL (1100-4500); Lymphocytes Percent Auto 33.2 % (25-40); Mean Corpuscular HGB Conc 33.5 % (30-36); Mean Corpuscular Hemoglobin 28.5 PG (26-34); Mean Corpuscular Volume 85.1 fL (80-100); Monocytes Absolute Auto 500 /uL (0-900); Monocytes Percent Auto 10.5 % (3-14); Neutrophils Absolute Auto 2700 /uL (1500-7000); Neutrophils Percent Auto 52.1 % (50-75); Platelet Count 216 X10^3/uL (150-400); Red Blood Cell Count 4.74 X10^6/uL (4.5-5.9); Red Cell Distribution Width 13.1 % (11.6-14.8); White Blood Cell Count 5.2 X10^3/uL (4.5-11.0)
[2022-09-29 09:16] LABS: Hemoglobin A1C% w Est Avg Glu 7.1 % (4.0-6.0)
[2022-09-29 09:31] LABS: Cholesterol 218 mg/dL (140-199); HDL Cholesterol 48 mg/dL (40-60); LDL Cholesterol Calculated 120 mg/dL (<100); Triglycerides 250 mg/dL (35-150)
[2022-09-29 10:01] LABS: Prostate Specific Antigen Scrn 0.492 ng/mL (0.1-4.0)
[2022-09-29 10:12] LABS: TSH w/ Reflex to FT4 1.22 uIU/mL (0.47-4.68)
[2022-09-29 10:43] LABS: Creatinine Urine Random 155.8 mg/dL
[2022-09-29 10:48] LABS: Microalbumin Urine Random 1.1 mg/dL (0-1.6)
== END ==
PROVIDERS: PCP Family Medicine; Referring Provider Family Medicine; Visit Provider Family Medicine
DX: E11.65 Type 2 diabetes mellitus with hyperglycemia (principal); E66.01 Morbid (severe) obesity due to excess calories; E78.5 Hyperlipidemia, unspecified; G62.9 Polyneuropathy, unspecified; Z12.5 Encounter for screening for malignant neoplasm of prostate
CPT/HCPCS: 36415; 80061; 82043; 82570; 83036; 84443; 85025; G0103

== ENCOUNTER → 2023-04-07 11:17 | Outpatient (CLI) | payer OTHER, SELFPAY ==
[2021-01-12 15:47] VITALS: BMI 32.3
[2023-04-07 13:08] LABS: BUN Creatinine Ratio 24.4 (6-22); Blood Urea Nitrogen 19 mg/dL (9-20); Calcium 9.3 mg/dL (8.4-10.2); Carbon Dioxide 25 mmol/L (22-32); Chloride 105 mmol/L (98-107); Estimated Glomerular Filt Rate > 60 mL/min (>60); Glucose 145 mg/dL (70-100); HEMOLYSIS < 15 (0-50); Potassium 4.5 mmol/L (3.4-5.1); Sodium 138 mmol/L (137-145)
[2023-04-07 13:09] LABS: Hemoglobin A1C% w Est Avg Glu 8.1 % (4.0-6.0)
== END ==
PROVIDERS: PCP Family Medicine; Referring Provider Family Medicine; Visit Provider Family Medicine
DX: E11.9 Type 2 diabetes mellitus without complications (principal)
CPT/HCPCS: 36415; 80048; 83036

== ENCOUNTER → 2024-01-12 08:30 | Outpatient (CLI) | payer OTHER, SELFPAY ==
[2021-01-12 15:47] VITALS: BMI 32.3
[2024-01-12 09:23] LABS: Add Manual Diff / Slide Review NO; Basophils Absolute Auto 0 /uL (0-100); Basophils Percent Auto 0.6 % (0-2); Eosinophils Absolute Auto 200 /uL (0-450); Eosinophils Percent Auto 3.3 % (2-4); Hematocrit 39.3 % (41-53); Hemoglobin 13.2 g/dL (13.5-17.5); Lymphocytes Absolute Auto 1600 /uL (1100-4500); Lymphocytes Percent Auto 28.6 % (25-40); Mean Corpuscular HGB Conc 33.6 % (30-36); Mean Corpuscular Hemoglobin 29.1 PG (26-34); Mean Corpuscular Volume 86.4 fL (80-100); Monocytes Absolute Auto 500 /uL (0-900); Monocytes Percent Auto 8.8 % (3-14); Neutrophils Absolute Auto 3200 /uL (1500-7000); Neutrophils Percent Auto 58.7 % (50-75); Platelet Count 235 X10^3/uL (150-400); Red Blood Cell Count 4.55 X10^6/uL (4.5-5.9); Red Cell Distribution Width 12.7 % (11.6-14.8); White Blood Cell Count 5.5 X10^3/uL (4.5-11.0)
[2024-01-12 09:33] LABS: Hemoglobin A1C% w Est Avg Glu 8.9 % (4.0-6.0)
[2024-01-12 09:39] LABS: Alanine Aminotransferase 35 IU/L (<50); Albumin 4.4 g/dL (3.5-5.0); Albumin Globulin Ratio 1.8 (1.0-2.8); Alkaline Phosphatase 86 U/L (38-126); Aspartate Aminotransferase 26 IU/L (17-59); BUN Creatinine Ratio 16.3 (6-22); Bilirubin Total 0.4 mg/dL (0.2-1.3); Blood Urea Nitrogen 13 mg/dL (9-20); Calcium 9.4 mg/dL (8.4-10.2); Carbon Dioxide 27 mmol/L (22-32); Chloride 106 mmol/L (98-107); Cholesterol 194 mg/dL (140-199); Estimated Glomerular Filt Rate > 60 mL/min (>60); Globulin 2.4 g/dL (1.7-4.1); Glucose 208 mg/dL (70-100); HDL Cholesterol 39 mg/dL (40-60); HEMOLYSIS < 15 (0-50); LDL Cholesterol Calculated 88 mg/dL (<100); Potassium 5.2 mmol/L (3.4-5.1); Sodium 140 mmol/L (137-145); Total Protein 6.8 g/dL (6.3-8.2); Triglycerides 334 mg/dL (35-150)
[2024-01-12 09:54] LABS: Creatinine Urine Random 88.99 mg/dL
[2024-01-12 09:59] LABS: Microalbumin Urine Random 0.7 mg/dL (0-1.6)
== END ==
PROVIDERS: PCP Family Medicine; Referring Provider Family Medicine; Visit Provider Family Medicine
DX: E11.65 Type 2 diabetes mellitus with hyperglycemia (principal); E78.2 Mixed hyperlipidemia; E66.01 Morbid (severe) obesity due to excess calories
CPT/HCPCS: 36415; 80053; 80061; 82043; 82570; 83036; 85025

== ENCOUNTER → 2024-04-12 11:10 | Outpatient (CLI) | payer OTHER, SELFPAY ==
[2021-01-12 15:47] VITALS: BMI 32.3
[2024-04-12 11:38] LABS: Hemoglobin A1C% w Est Avg Glu 6.6 % (4.0-6.0)
[2024-04-12 12:07] LABS: Blood Urea Nitrogen 18 mg/dL (9-20); Calcium 9.3 mg/dL (8.4-10.2); Carbon Dioxide 20 mmol/L (22-32); Chloride 105 mmol/L (98-107); Estimated Glomerular Filt Rate > 60 mL/min (>60); Glucose 119 mg/dL (70-100); Potassium 4.9 mmol/L (3.4-5.1); Sodium 137 mmol/L (137-145)
[2024-04-12 12:08] LABS: HEMOLYSIS 115 (0-50)
== END ==
PROVIDERS: PCP Family Medicine; Referring Provider Family Medicine; Visit Provider Family Medicine
DX: E11.9 Type 2 diabetes mellitus without complications (principal)
CPT/HCPCS: 36415; 80048; 83036

== ENCOUNTER → 2025-01-02 06:45 | Outpatient (CLI) | payer OTHER, SELFPAY ==
[2021-01-12 15:47] VITALS: BMI 32.3
[2025-01-02 07:33] LABS: Add Manual Diff / Slide Review NO; Basophils Absolute Auto 0 /uL (0-100); Basophils Percent Auto 0.6 % (0-2); Eosinophils Absolute Auto 200 /uL (0-450); Eosinophils Percent Auto 2.7 % (2-4); Hemoglobin 14.3 g/dL (13.5-17.5); Lymphocytes Absolute Auto 2000 /uL (1100-4500); Lymphocytes Percent Auto 27.7 % (25-40); Mean Corpuscular HGB Conc 33.9 % (30-36); Mean Corpuscular Hemoglobin 29.2 PG (26-34); Monocytes Absolute Auto 700 /uL (0-900); Monocytes Percent Auto 9.6 % (3-14); Neutrophils Absolute Auto 4300 /uL (1500-7000); Neutrophils Percent Auto 59.4 % (50-75); Platelet Count 212 X10^3/uL (150-400); Red Blood Cell Count 4.89 X10^6/uL (4.5-5.9); Red Cell Distribution Width 13.3 % (11.6-14.8); White Blood Cell Count 7.3 X10^3/uL (4.5-11.0)
[2025-01-02 07:46] LABS: Hemoglobin A1C% w Est Avg Glu 6.9 % (4.0-6.0)
[2025-01-02 07:57] LABS: Alanine Aminotransferase 26 IU/L (<50); Albumin 4.4 g/dL (3.5-5.0); Alkaline Phosphatase 81 U/L (38-126); Aspartate Aminotransferase 24 IU/L (17-59); BUN Creatinine Ratio 24.3 (6-22); Bilirubin Total 0.6 mg/dL (0.2-1.3); Blood Urea Nitrogen 17 mg/dL (9-20); Carbon Dioxide 24 mmol/L (22-32); Chloride 105 mmol/L (98-107); Cholesterol 177 mg/dL (140-199); Estimated Glomerular Filt Rate > 60 mL/min (>60); Globulin 2.2 g/dL (1.7-4.1); Glucose 162 mg/dL (70-99); HDL Cholesterol 40 mg/dL (40-60); HEMOLYSIS < 15 (0-50); LDL Cholesterol Calculated 80 mg/dL (<100); Potassium 4.5 mmol/L (3.4-5.1); Sodium 137 mmol/L (137-145); Total Protein 6.6 g/dL (6.3-8.2); Triglycerides 286 mg/dL (35-150)
[2025-01-02 08:23] LABS: Prostate Specific Antigen Scrn 0.594 ng/mL (0.1-4.0)
== END ==
PROVIDERS: PCP Family Medicine; Referring Provider Family Medicine; Visit Provider Family Medicine
DX: I10 Essential (primary) hypertension (principal); E78.5 Hyperlipidemia, unspecified; E11.9 Type 2 diabetes mellitus without complications; Z12.5 Encounter for screening for malignant neoplasm of prostate
CPT/HCPCS: 36415; 80053; 80061; 83036; 85025; G0103

== ENCOUNTER → 2025-07-04 07:38 | Outpatient (CLI) | payer OTHER, SELFPAY ==
[2021-01-12 15:47] VITALS: BMI 32.3
[2025-07-04 09:00] LABS: Hemoglobin A1C% w Est Avg Glu 7.0 % (4.0-6.0)
[2025-07-04 09:06] LABS: Blood Urea Nitrogen 19 mg/dL (9-20); Calcium 9.0 mg/dL (8.4-10.2); Carbon Dioxide 23 mmol/L (22-32); Chloride 105 mmol/L (98-107); Estimated Glomerular Filt Rate > 60 mL/min (>60); Glucose 172 mg/dL (70-99); HEMOLYSIS < 15 (0-50); Potassium 4.5 mmol/L (3.4-5.1); Sodium 139 mmol/L (137-145)
== END ==
PROVIDERS: PCP Family Medicine; Referring Provider Family Medicine; Visit Provider Family Medicine
DX: E11.9 Type 2 diabetes mellitus without complications (principal)
CPT/HCPCS: 36415; 80048; 83036